=== PATIENT | male | born 1940 | race Caucasian/White ===

== ENCOUNTER 2023-09-19 01:22 | Emergency (ER) | payer MEDICARE, SELFPAY ==
[2023-09-19 01:27] VITALS: BP 90/66
[2023-09-19] MEDS: ADENOCARD 6 MG IV (01:41)
--- NOTE | 2023-09-19 01:48 | ED.GENMED ---
History of Present Illness
General
Chief Complaint: Heart Rate Problem
Source: patient, records and spouse
Exam Limitations: none
Time Seen by Provider: 09/19/23 01:33
Nursing documentation reviewed up to this point in time: agreed with
Travel History
Have you had any contact with someone who has COVID-19?: No
Do you have any symptoms of coronavirus? Fever > 100 degrees, chills, cough, shortness of breath, sore throat, loss of taste or smell, muscle aches, or headache?: No
History of Present Illness
History of Present Illness:
83-year-old male with a past medical history of hypertension, hyperlipidemia, diabetes, paroxysmal SVTWho presents to the emergency department accompanied by his for evaluation of palpitations. Patient reports onset this evening about 30
minutes prior to arrival�says that he felt mildly nauseated and felt his heart racing�these are his typical symptoms with SVT. He says his last episode was about 6 months ago. He says he checked his heart rate with a home monitor and it was 185;
he tried vagal maneuver (below on his thumb) unsuccessfully and came directly to the ER. He denies any chest pain. Denies any shortness of breath. Denies any dizziness or lightheadedness. He says that he has seen cardiology in the past and
discussed ablation but has not yet undergone the procedure�he says he was hesitant because for the past few months.
Past History
Past History
ED Past Medical History: Arrthythmia, HTN, Hypercholesterolemia, NIDDM, Other (SVT) and Other (Patient has a history of kidney stones, enlarge prostate)
ED Past Surgical History: None
Social History
Tobacco: Non-smoker
Alcohol: Occasional
Drug: None
Personal:
Living: with family
Employment: Employed
Family History
Family History: Other (Noncontributory)
Review of Systems
Review of Systems
All Other Systems: ROS reviewed and negative except as documented in HPI and ROS
Constitutional: Denies fever or chills
Respiratory: Denies trouble breathing
Cardiac: Reports palpitations; Denies chest pain, diaphoresis or syncope
ABD/GI: Reports nausea; Denies abdominal pain, vomiting or diarrhea
: Denies flank pain
Musculoskeletal: Denies neck pain or back pain
Neurological: Denies dizzy, headache, weakness or numbness
Phy Exam
Physical Exam
Physical Exam:
General: Awake, alert, oriented x3; no acute distress
Head: Normocephalic, atraumatic
Eyes: Conjunctiva normal, sclera anicteric
Throat: Airway intact, handling secretions
Neck: Trachea midline, supple without meningismus
Lungs: Clear to auscultation bilaterally, no wheezing, rales, rhonchi
Heart: Tachycardia with regular rhythm, no murmurs, gallops, or rubs
Abd: Soft, non distended, nontender
Neuro: Cranial nerves grossly intact, speech fluid
Skin: no rash
Extremities: No edema in extremities, equal pulses in all extremities
Scores
Heart Failure Risk
Heart Failure Risk Score: Not Applicable
Heart Score for Chest Pain Patients
STEMI patient?: Not applicable
Withdrawal Assessment of Alcohol
Withdrawal Assessment Completed?: Not applicable
Course
Orders/Labs/Results
Orders:
Orders
09/19/23 01:29
Electrocardiogram (*1) Urgent
Reason for Study: Tachycardia
EKG- Treatment ONCE
09/19/23 01:38
Adenosine [Adenocard] 12 mg .ROUTE .STK-MED ONE
09/19/23 01:41
Adenosine [Adenocard] 6 mg IV NOW STA
09/19/23 01:59
CMP [Comprehensive Metabolic Panel] Urgent
Complete Blood Count/With Diff Urgent
Magnesium Urgent
Abnormal Lab Results
09/19/23
01:59
RBC 4.48 L 10^6/uL
(4.70-6.10)
Hct 37.8 L %
(39.0-52.0)
Abs Immat Gran (auto) 0.1 H 10^3/uL
(0-0.05)
Immature Gran % 0.8 H %
(0-0.5)
Carbon Dioxide 19 L mmol/L
(22-30)
BUN 27 H mg/dl
(9-20)
Creatinine 1.6 H mg/dL
(0.7-1.3)
Glucose 288 H mg/dl
(70-99)
Total Protein 6.0 L g/dl
(6.3-8.2)
09/19/23 01:59
09/19/23 01:59
Vital Signs
Initial and Last Documented VS:
Initial Vital Signs
Pulse Resp BP
178 26 90/66
09/19/23 01:27 09/19/23 01:27 09/19/23 01:27
Last Documented Vital Signs
Temp Pulse Resp BP Pulse Ox
36.8 C 83 20 111/61 95
09/19/23 01:48 09/19/23 02:30 09/19/23 02:30 09/19/23 02:32 09/19/23 02:30
MDM/Problems Addressed
Differential Diagnosis Includes:
SVT, A-fib/A-flutter
MDM/Problems Addressed:
83-year-old male with history as above notable for paroxysmal SVT presents with palpitations and nausea consistent with prior episodes of SVT. He tried vagal maneuvers at home unsuccessfully. He has no chest pain or shortness of breath. Soft
blood pressure 90/66 heart rate 180 on my assessment. EKG shows narrow complex tachycardia most consistent with an SVT. Given 6 mg of IV adenosine and successfully converted to a sinus rhythm. Symptoms resolved. Blood pressure normal. Will
check basic labs, monitor on telemetry for recurrence. If vitals remain normal and patient remains asymptomatic can likely be discharged home and follow-up with cardiology as an outpatient.
Labs reviewed: CBC unremarkable, CMP shows creatinine 1.6 which is baseline. He is hyperglycemic to 288. Discussed results with patient and will follow-up with his primary doctor. He has remained clinically stable here blood pressure normalized
after adenosine, heart rate in the 80s he is asymptomatic. Medically stable for discharge at this point in time. He will follow-up with Dr. Bernal as an outpatient. Spoke about return precautions and all questions answered.
Chronic conditions affecting care:
Paroxysmal SVT
*Pulse Oximetry
Patient hypoxic: no
*EKG
Interpreted by ED Provider?: Yes
Comparison EKG: changes noted (SVT)
Heart Rate: 175
Rate: tachycardiac
Rhythm: SVT
[place]: left axis deviation
Interval: normal interval
QRS Pattern: normal QRS
Ischemia: non-specific ST changes
*Critical Care Note
Total Time (30-74mins, 75-104mins- exclusive of procedures): 32
comment:
Critical care statement: A total of 32 minutes of critical care time was provided for this patient. This includes management of unstable vital signs, evaluation of the patient at bedside, frequent reassessment, discussion with
consultants/hospitalist, and review of pertinent medical records. This time was separate from time utilized to perform any aforementioned documented procedures
Data Reviewed
Source: patient, records and spouse
ED Attending Note
-
Portions of this chart may have been created with voice recognition software.� Occasional wrong word or��sound alike� substitutions may have occurred due to the inherent limitations of voice recognition software.
Discharge Plan
Departure
Patient Disposition: Home (Routine Discharge)
Date of Disposition: 09/19/23
Time of Disposition: 02:34
Patient with high blood pressure during this ER visit?: No
Discharge Problem:
SVT (supraventricular tachycardia)
Instructions: Supraventricular tachycardia (SVT)
Prescriptions:
No Action
ASPIRIN
81 mg PO DAILY
tamsulosin 0.4 MG capsule
0.4 mg PO DAILY
finasteride 5 MG tablet
5 mg PO DAILY
metformin 500 MG tablet extended release 24hr
1,000 mg PO BID
metoprolol tartrate 50 MG tablet
50 mg PO DAILY Qty: 30 0RF
cholecalciferol (vitamin D3) 2,000 UNIT tablet
2,000 unit PO DAILY
multivitamin [Daily Multiple] 1 EACH tablet
1 ea PO DAILY
rosuvastatin 5 MG tablet
5 mg PO QPM
sitagliptin phosphate [Januvia] 100 MG tablet
100 mg PO DAILY
Referrals:
Negro Bernal MD [Active] - Call in 1-3 days for appt
Activity Restrictions/Additional Instructions:
Thank you for visiting the Emergency Department at [facility].
1. Please schedule a follow up appointment as directed. Call first thing tomorrow morning to make an appointment.
2. If indicated, please take your medications as instructed and indicated on discharge paperwork.
3. If any of your symptoms do not improve, or persist, or become more severe within 6-12 hours, please return to the emergency department for further care.
4. Please return to the emergency department if you develop a headache, neck pain/stiffness, fever greater than 100.4F, chest pain, shortness of breath, persistent nausea, vomiting, slurred speech, difficulty walking, numbness/tingling, weakness,
signs of infection or any other symptoms that are worrisome to you.
Please call [phone] if you have any questions.
Interventions
Interventions:
ED- Cardiac Assessment Last Done: 09/19/23 01:30
ED- Pulmonary Assessment Last Done: 09/19/23 01:30
[2023-09-19 02:00] VITALS: BP 99/64
[2023-09-19 02:05] LABS: % Eosinophils 2.7 % (0-6); % Immature Granulocytes 0.8 % (0-0.5); % Lymphocytes 29.5 % (20.5-51.1); % Monocytes 8.5 % (1.7-9.3); % Neutrophils 57.5 % (42.2-75.2); Absolute Basophils 0.1 10^3/uL (0-0.2); Absolute Eosinophils 0.2 10^3/uL (0-0.7); Absolute Immature Granulocytes 0.1 10^3/uL (0-0.05); Absolute Lymphocytes 1.8 10^3/uL (1.2-3.4); Absolute Monocytes 0.5 10^3/uL (0.1-0.6); Absolute Neutrophils 3.5 10^3/uL (1.4-6.5); Hematocrit 37.8 % (39.0-52.0); Hemoglobin 13.9 g/dL (13.0-18.0); Mean Corp Hgb Conc. 36.8 g/dL (33.0-37.0); Mean Corpuscular Volume 84.4 fL (80.0-94.0); Mean Platelet Volume 8.8 fL (7.4-10.4); Nucleated Red Blood Cells % 0 % (-); Platelet Count 173 10^3/uL (130-400); Red Blood Cell Count 4.48 10^6/uL (4.70-6.10); Red Cell Dist. Width 13.2 % (11.5-14.5)
[2023-09-19 02:24] LABS: ALT (SGPT) 22 U/L (0-50); AST (SGOT) 19 U/L (17-59); Albumin 3.6 g/dl (3.5-5.0); Alkaline Phosphatase 60 U/L (38-126); Blood Urea Nitrogen 27 mg/dl (9-20); Calcium 9.2 mg/dl (8.4-10.2); Carbon Dioxide 19 mmol/L (22-30); Chloride 102 mmol/L (98-107); Glucose 288 mg/dl (70-99); Magnesium 1.7 mg/dl (1.6-2.3); Potassium 3.6 mmol/L (3.5-5.1); Sodium 137 mmol/L (135-145); Total Bilirubin 0.9 mg/dl (0.2-1.3); eGFR 42.75
[2023-09-19 02:30] VITALS: BP 111/61
[2023-09-19 02:32] VITALS: BP 111/61
[2023-09-19 02:46] VITALS: BP 106/68
[2023-09-19 02:51] VITALS: BP 106/68
== END 2023-09-19 02:52 | disposition home or self-care (01) ==
LOC: EMR 01:22
PROVIDERS: EMERGENCY PHYSICIAN Emergency Medicine; FAMILY PHYSICIAN Internal Medicine
DX: I47.10 Supraventricular tachycardia, unspecified (principal); E11.65 Type 2 diabetes mellitus with hyperglycemia
CPT/HCPCS: 99291; 96374; 80053; 83735; 85025; 93005; J0153

== ENCOUNTER 2023-12-18 11:47 | Emergency (ER) | payer MEDICARE, SELFPAY ==
[2023-12-18 11:49] VITALS: BP 136/73
--- NOTE | 2023-12-18 12:35 | ED.GENMED ---
History of Present Illness
General
Chief Complaint: Dizziness
Time Seen by Provider: 12/18/23 12:13
Travel History
Have you had any contact with someone who has COVID-19?: No
Do you have any symptoms of coronavirus? Fever > 100 degrees, chills, cough, shortness of breath, sore throat, loss of taste or smell, muscle aches, or headache?: No
History of Present Illness
History of Present Illness:
83-year-old male with history of hypertension and hyperlipidemia as well as [id number] diabetes presents to the emergency department for evaluation of dizziness and 'clamminess' began upon awakening this morning. The symptoms seem to
have since improved. also notes that over the past several weeks he has seemed 'off' with shuffling gait and occasional confusion. Patient denies any recent fevers or chills. Denies any chest pain or shortness of breath. Denies any vision
changes or urinary tract voiding symptoms.
Past History
Past History
ED Past Medical History: Arrthythmia, HTN, Hypercholesterolemia, NIDDM, Other (SVT) and Other (Patient has a history of kidney stones, enlarge prostate)
ED Past Surgical History: None
Social History
Tobacco: Non-smoker
Alcohol: Occasional
Drug: None
Personal:
Living: with family
Employment: Employed
Family History
Family History: Other (Noncontributory)
Review of Systems
Review of Systems
Allergies reviewed?: Yes
All Other Systems: ROS reviewed and negative except as documented in HPI and ROS
Phy Exam
Physical Exam
Physical Exam:
GEN: Well appearing, NAD, WDWN
HEENT: Oral mucosa moist, no scleral icterus, no nasal congestion
Cardiac: Regular rate and rhythm. 3/6 systolic ejection murmur, consistent with known aortic stenosis
Lung: No respiratory distress, no tachypnea
MSK: No gross deformity or injuries
Skin: Good color, no pallor or jaundice, no rashes
Neuro: AO x3; CN II-XII grossly intact. BUE strength 5/5 in all finley, sensation intact and symmetric. BLE strength 5/5 in all finley, sensation intact and symmetric. Gait is steady without ataxia
Psych: Calm, cooperative
Course
Orders/Labs/Results
Orders:
Orders
12/18/23 12:34
Electrocardiogram (*1) Urgent
Reason for Study: Vertigo / Dizzy
CT Head W/o Iv Contrast Urgent
Comment:
Reason For Exam: dizziness
EKG- Treatment ONCE
12/18/23 12:50
Complete Blood Count/With Diff Urgent
Comprehensive Metabolic Panel Urgent
12/18/23 13:42
Urinalysis Reflex To Culture Urgent
Date Specimen was Collected: 12/18/23
Time Specimen was Collected: 13:27
Abnormal Lab Results
12/18/23 12/18/23
12:50 13:42
RBC 4.64 L 10^6/uL
(4.70-6.10)
MCH 31.5 H pg
(27.0-31.0)
Abs Immat Gran (auto) 0.1 H 10^3/uL
(0-0.05)
Absolute Lymphs (auto) 1.1 L 10^3/uL
(1.2-3.4)
Immature Gran % 0.9 H %
(0-0.5)
Lymphocytes % 19.7 L %
(20.5-51.1)
BUN 24 H mg/dl
(9-20)
Glucose 268 H mg/dl
(70-99)
Urine Ketones Trace A
(Negative)
Urine Glucose 3+ A
(Negative)
12/18/23 12:50
12/18/23 12:50
Vital Signs
Initial and Last Documented VS:
Initial Vital Signs
Temp Pulse Resp BP Pulse Ox
98.6 F 81 18 136/73 95
12/18/23 11:49 12/18/23 11:49 12/18/23 11:49 12/18/23 11:49 12/18/23 11:49
Last Documented Vital Signs
Temp Pulse Resp BP Pulse Ox
98.6 F 68 18 153/82 98
12/18/23 11:49 12/18/23 14:34 12/18/23 14:34 12/18/23 14:31 12/18/23 14:31
MDM/Problems Addressed
MDM/Problems Addressed:
83-year-old male presents with abrupt onset of dizziness and reported shuffling gait. Neurologic exam in the emergency department is unremarkable and I see no evidence for shuffling gait. CT of the head shows suggestion of potential
ventriculomegaly concerning for normal pressure hydrocephalus which certainly could explain the patient's gradual symptoms. He has no abdelrahman confusion or urinary incontinence to suggest severe functional limitation from this potential diagnosis. I
see no evidence for acute stroke based on the exam today. Patient's labs are otherwise unremarkable. Recommend outpatient primary care follow-up and neurology consultation for potential brain MRI and further evaluation of possible NPH
Comment
Comment:
EKG independently interpreted by me shows normal sinus rhythm at a rate of [address] changes concerning for ischemia
*Critical Care Note
Total Time (30-74mins, 75-104mins- exclusive of procedures): Not Applicable
ED Attending Note
-
Portions of this chart may have been created with voice recognition software.� Occasional wrong word or��sound alike� substitutions may have occurred due to the inherent limitations of voice recognition software.
Discharge Plan
Departure
Patient Disposition: Home (Routine Discharge)
Date of Disposition: 12/18/23
Time of Disposition: 14:22
Patient with high blood pressure during this ER visit?: No
Discharge Problem:
Unsteady gait
Instructions: Hydrocephalus (DC)
Prescriptions:
No Action
ASPIRIN
81 mg PO DAILY
tamsulosin 0.4 MG capsule
0.4 mg PO DAILY
finasteride 5 MG tablet
5 mg PO DAILY
metformin 500 MG tablet extended release 24hr
1,000 mg PO BID
metoprolol tartrate 50 MG tablet
50 mg PO DAILY Qty: 30 0RF
cholecalciferol (vitamin D3) 2,000 UNIT tablet
2,000 unit PO DAILY
multivitamin [Daily Multiple] 1 EACH tablet
1 ea PO DAILY
rosuvastatin 5 MG tablet
5 mg PO QPM
sitagliptin phosphate [Januvia] 100 MG tablet
100 mg PO DAILY
Referrals:
Ben Taylor MD [Active] -
Activity Restrictions/Additional Instructions:
There are no clear abnormalities on your workup in the ER today however your CT scan does suggest the possibility of increased fluid in the brain. This would be diagnostic of a condition called normal pressure hydrocephalus. Further
diagnosis/testing will be necessary to confirm this. Please follow-up with your primary care physician to discuss a brain MRI as well as with the neurologist listed on your paperwork
Interventions
Interventions:
*Risk Screen - Suicide Last Done: 12/18/23 11:49
*General Assessment Last Done: 12/18/23 11:49
*Neglect/Abuse Screening Last Done: 12/18/23 11:49
ED- Fall Risk Assessment Last Done: 12/18/23 14:47
*ED COVID-19 Vaccine History Last Done: 12/18/23 12:31
*Nursing Disposition Last Done: 12/18/23 14:47
ED- Neurological Assessment Last Done: 12/18/23 12:52
ED- Cardiac Assessment Last Done: 12/18/23 14:47
Discharge Date and Time
Discharge Date/Time: 12/18/23 14:48
Print Language: HONDURAN
[2023-12-18 12:52] VITALS: BP 174/74
[2023-12-18 13:26] LABS: % Basophils 1.5 % (0-2); % Immature Granulocytes 0.9 % (0-0.5); % Lymphocytes 19.7 % (20.5-51.1); % Monocytes 6.1 % (1.7-9.3); % Neutrophils 69.8 % (42.2-75.2); Absolute Basophils 0.1 10^3/uL (0-0.2); Absolute Eosinophils 0.1 10^3/uL (0-0.7); Absolute Immature Granulocytes 0.1 10^3/uL (0-0.05); Absolute Lymphocytes 1.1 10^3/uL (1.2-3.4); Absolute Monocytes 0.3 10^3/uL (0.1-0.6); Absolute Neutrophils 3.7 10^3/uL (1.4-6.5); Hematocrit 40.3 % (39.0-52.0); Hemoglobin 14.6 g/dL (13.0-18.0); Mean Corp Hgb Conc. 36.2 g/dL (33.0-37.0); Mean Corpuscular Hgb 31.5 pg (27.0-31.0); Mean Corpuscular Volume 86.9 fL (80.0-94.0); Mean Platelet Volume 9.1 fL (7.4-10.4); Nucleated Red Blood Cells % 0 % (-); Platelet Count 195 10^3/uL (130-400); Red Blood Cell Count 4.64 10^6/uL (4.70-6.10); Red Cell Dist. Width 13.2 % (11.5-14.5); White Blood Cell Count 5.4 10^3/uL (4.8-10.8)
[2023-12-18 13:51] LABS: ALT (SGPT) 21 U/L (0-50); AST (SGOT) 22 U/L (17-59); Albumin 4.1 g/dl (3.5-5.0); Alkaline Phosphatase 59 U/L (38-126); Blood Urea Nitrogen 24 mg/dl (9-20); Calcium 9.7 mg/dl (8.4-10.2); Carbon Dioxide 22 mmol/L (22-30); Chloride 105 mmol/L (98-107); Glucose 268 mg/dl (70-99); Potassium 4.8 mmol/L (3.5-5.1); Sodium 136 mmol/L (135-145); Total Protein 6.7 g/dl (6.3-8.2); eGFR 54.85
[2023-12-18 14:03] LABS: Urine Albumin Negative (Neg - Trace); Urine Bilirubin Negative (Negative); Urine Character Clear (Clear); Urine Color Yellow; Urine Glucose 3+ (Negative); Urine Ketone Trace (Negative); Urine Leukocyte Negative (Negative); Urine Nitrite Negative (Negative); Urine Occult Blood Negative (Negative); Urine Urobilinogen Negative (Neg - 1+); Urine pH 6.5 (5.0-9.0)
[2023-12-18 14:31] VITALS: BP 153/82
== END 2023-12-18 14:48 | disposition home or self-care (01) ==
LOC: EMR 11:47
PROVIDERS: Physician Assistant; EMERGENCY PHYSICIAN Emergency Medicine
DX: R26.81 Unsteadiness on feet (principal); R42 Dizziness and giddiness; R41.0 Disorientation, unspecified; I10 Essential (primary) hypertension; E78.00 Pure hypercholesterolemia, unspecified; E11.9 Type 2 diabetes mellitus without complications; I47.10 Supraventricular tachycardia, unspecified; I35.0 Nonrheumatic aortic (valve) stenosis; Z87.442 Personal history of urinary calculi; Z79.82 Long term (current) use of aspirin; Z79.84 Long term (current) use of oral hypoglycemic drugs
CPT/HCPCS: 99284; 70450; 80053; 81003; 85025; 93005

== ENCOUNTER → 2024-01-11 06:44 | Outpatient (REF) | payer MEDICARE, SELFPAY | LOC: PAVMRI 06:44 | PROVIDERS: ATTENDING PHYSICIAN Internal Medicine | DX: G91.9 Hydrocephalus, unspecified (principal) | CPT/HCPCS: 70551 ==

== ENCOUNTER → 2024-02-23 09:32 | Outpatient (REF) | payer MEDICARE, SELFPAY | LOC: RCS 09:32 | PROVIDERS: ATTENDING PHYSICIAN Internal Medicine Cardiovascular Disease; FAMILY PHYSICIAN Internal Medicine | DX: I48.0 Paroxysmal atrial fibrillation (principal); I35.0 Nonrheumatic aortic (valve) stenosis; I25.10 Atherosclerotic heart disease of native coronary artery without angina pectoris | CPT/HCPCS: 93306 ==

== ENCOUNTER 2024-03-17 14:20 | Inpatient (IN) | payer MEDICARE, SELFPAY ==
[2024-03-17] VITALS (15 sets, daily range): BP systolic 112–169; BP diastolic 66–101; PULSE 83; O2SAT 95; BMI 25.7
[2024-03-17 00:51] LABS: Urine Albumin Negative (Neg - Trace); Urine Bilirubin Negative (Negative); Urine Character Clear (Clear); Urine Color Yellow; Urine Glucose 3+ (Negative); Urine Ketone 1+ (Negative); Urine Leukocyte Negative (Negative); Urine Nitrite Negative (Negative); Urine Occult Blood 1+ (Negative); Urine Urobilinogen Negative (Neg - 1+)
[2024-03-17 00:53] LABS: % Eosinophils 2.2 % (0-6); % Immature Granulocytes 0.3 % (0-0.5); % Lymphocytes 23.9 % (20.5-51.1); % Monocytes 8.5 % (1.7-9.3); % Neutrophils 64.1 % (42.2-75.2); Absolute Basophils 0.1 10^3/uL (0-0.2); Absolute Eosinophils 0.1 10^3/uL (0-0.7); Absolute Lymphocytes 1.4 10^3/uL (1.2-3.4); Absolute Monocytes 0.5 10^3/uL (0.1-0.6); Absolute Neutrophils 3.8 10^3/uL (1.4-6.5); Hematocrit 40.4 % (39.0-52.0); Hemoglobin 14.7 g/dL (13.0-18.0); Mean Corp Hgb Conc. 36.4 g/dL (33.0-37.0); Mean Corpuscular Hgb 31.1 pg (27.0-31.0); Mean Corpuscular Volume 85.4 fL (80.0-94.0); Mean Platelet Volume 8.7 fL (7.4-10.4); Nucleated Red Blood Cells % 0 % (-); Platelet Count 192 10^3/uL (130-400); Red Blood Cell Count 4.73 10^6/uL (4.70-6.10); Red Cell Dist. Width 12.9 % (11.5-14.5); White Blood Cell Count 5.9 10^3/uL (4.8-10.8)
[2024-03-17 01:02] LABS: Urine Bacteria Moderate (Negative); Urine White Cell 0-2 /HPF (0-5)
[2024-03-17 01:04] LABS: ALT (SGPT) 18 U/L (0-50); AST (SGOT) 19 U/L (17-59); Albumin 4.1 g/dl (3.5-5.0); Alkaline Phosphatase 73 U/L (38-126); Blood Urea Nitrogen 21 mg/dl (9-20); Calcium 9.4 mg/dl (8.4-10.2); Carbon Dioxide 22 mmol/L (22-30); Chloride 103 mmol/L (98-107); Glucose 400 mg/dl (70-99); Potassium 3.9 mmol/L (3.5-5.1); Sodium 133 mmol/L (135-145); Total Bilirubin 1.3 mg/dl (0.2-1.3); Total Protein 6.7 g/dl (6.3-8.2); eGFR > 60.00
[2024-03-17] MEDS: NSS 1000 IV (01:54)
--- NOTE | 2024-03-17 02:55 | EDRN ---
Dr Ledesma asked that med rec be done because pt has bag of medications in the room. Pt has 2 bottles of unopened eliquis filled 2021, 1 bottle unopened januvia filled 2021. Filled in 2022 are metoprolol ER, tamsulosin, glipizide and eliquis all of
which have a lot of pills in them. Pt has only 2 bottles filled this year - rosuvastatin and metformin which are almost if not completely filled. Unable to do accurate med rec - Dr Ledesma informed.
--- NOTE | 2024-03-17 03:22 | ED.GENMED ---
History of Present Illness
<DO Jenelle Silverio Last Filed: 03/17/24 06:39>
General
Chief Complaint: Fall
Source: patient and family
Time Seen by Provider: 03/17/24 00:29
History of Present Illness
History of Present Illness:
84-year-old male with a history of diabetes, A-fib, hypertension presents with son who reports that over the last 3 to 5 weeks has had frequent falls. He is fallen up to once a day. Patient did fall yesterday and hit his head. Son states that he
has been also getting more confused. He is driving to friends houses in the middle the night. He is showing up at his son's house in the hallway. Patient states he is not sure when he took his medications last. Son states he lives by himself.
He does have a girlfriend who recently broke her hip and is in rehab. Son states he is concerned that he is going to fall and injure himself. The patient states he has not taken his Eliquis probably in 3 days. No fevers. No vomiting. He is
being worked up for normal pressure hydrocephalus and in 3 weeks has an appointment for possible lumbar puncture to see if symptoms improve
Past History
<DO Jenelle Silverio Last Filed: 03/17/24 06:39>
Past History
ED Past Medical History: Arrthythmia, HTN, Hypercholesterolemia, NIDDM, Other (SVT, possible normal pressure hydrocephalus versus dementia) and Other (Patient has a history of kidney stones, enlarge prostate)
ED Past Surgical History: None
Social History
Tobacco: Non-smoker
Alcohol: Occasional
Drug: None
Personal:
Living: with family
Employment: Employed
Family History
Family History: Other (Noncontributory)
Phy Exam
<DO Jenelle Silverio Last Filed: 03/17/24 06:39>
Physical Exam
Physical Exam:
CONSTITUTIONAL Patient alert and oriented to person, place and time. Well-appearing. Vital signs reviewed.
HEAD small abrasion to left frontal area
EYES eyelids normal to inspection, Extraocular muscles intact, Conjunctiva normal, Sclera normal.
NECK normal range of motion, Trachea midline, no jugular venous distention.
RESPIRATORY CHEST No respiratory distress noted, Chest expansion equal, Bilateral breath sounds clear.
CARDIOVASCULAR regular rate and rhythm, Heart sounds normal.
ABDOMEN abdomen nontender, Bowel sounds normal. No distention.
UPPER EXTREMITY range of motion normal, Motor strength normal, no cyanosis, no edema.
LOWER EXTREMITY range of motion normal, Motor strength normal, no cyanosis, no edema.
NEURO Speech normal, No focal motor deficits, Cranial Nerves intact to screening exam. Slightly confused
SKIN skin warm, dry, and normal in color.
Course
<Benjamin Ledesma, DO - Last Filed: 03/17/24 06:39>
Orders/Labs/Results
Orders:
Orders
03/17/24 00:40
CT Head W/o Iv Contrast Urgent
Comment:
Reason For Exam: fall, frequent falls
03/17/24 00:43
Complete Blood Count/With Diff Urgent
Comprehensive Metabolic Panel Urgent
Urinalysis Reflex To Culture Urgent
Date Specimen was Collected: 03/17/24
Time Specimen was Collected: 00:42
Urine Microscopic Reflex Cult Urgent
Urine Culture Urgent
AMRIT Source: U
Specimen Description:
Date Specimen was Collected: 03/17/24
Time Specimen was Collected: 00:42
03/17/24 01:51
0.9% Sodium Chloride 1000 ml [Nss] 1,000 ml IV BOLUS
03/17/24 02:41
METFORMIN HCl [Glucophage] 1,000 mg PO NOW STA
03/17/24 03:05
Case Management Consult ONCE
Case Management Consult: Discharge Planning
03/17/24 Breakfast
1800 calorie (15 carb) Diabetic
At Your Request: Full Participation
03/17/24 06:25
Bedside Glucose- Treatment ONCE
03/17/24 06:42
Insulin Aspart [NOVOLOG vial] 8 units SC NOW STA
03/17/24 08:[address] Non Medication Order As Directed
Physician Order: accu check please
Above order entered?: Yes
03/17/24 08:36
PT Consult [Pt Eval And Treat] Urgent
Activity Level: Out of Bed-Early Mobility
03/17/24 13:59
Admit/Transfer Patient As Directed
Co-Sign Provider:
Level of Care: Inpatient admission
Assign to:: Medical/Surgical
Physician / Group: Nery Wasserman
Diagnosis: Progressive Functional Cognitive Decline
Reason for Hospitalization: Progressive Functional Cognitive Decline
Expected length of stay greater than two midnights?: Yes
ELOS- Estimated Length of Stay in days: 2
I certify the patient meets the requirements for IP care: Yes
PRN Pain Medication Management As Directed
May give lesser potent ordered pain med per pt: Yes
preference::
Protocol:: Medication orders for pain may be administered in a
manner that supports deferring to patient preference
when the pt is:
- Requesting an ordered lesser potent pain medication.
Least to most potent pain medications are defined
as: acetaminophen < NSAID < tramadol < opioids
(morphine, oxycodone, hydromorphone).
- Requesting a lesser dose of the same medication IF
ORDERED.
- Requesting a less intrusive route of administration
if both routes are prescribed by the provider (PO <
IV).
03/17/24 14:04
Code Status As Directed
Resuscitation Status: Do not resuscitate
Reached after discussion with pt or family/Healthcare POA: Yes
03/17/24 14:05
DNR Bracelet Application ONCE
Abnormal Lab Results
03/17/24 03/17/24 03/17/24
00:43 06:35 08:25
MCH 31.1 H pg
(27.0-31.0)
Sodium 133 L mmol/L
(135-145)
BUN 21 H mg/dl
(9-20)
Glucose 400 H mg/dl
(70-99)
Urine Ketones 1+ A
(Negative)
Ur Occult Blood Reflex 1+ A
(Negative)
Urine RBC 3-6 A /HPF
(0-2)
Urine Bacteria (Reflex) Moderate A
(Negative)
Urine Glucose 3+ A
(Negative)
POC Glucose 324 H mg/dl 207 H mg/dl
(70-99) (70-99)
03/17/24 00:43
03/17/24 00:43
Vital Signs
Initial and Last Documented VS:
Initial Vital Signs
Temp Pulse Resp BP Pulse Ox
99.1 F 95 16 149/83 98
03/17/24 00:03 03/17/24 00:03 03/17/24 00:03 03/17/24 00:03 03/17/24 00:03
Last Documented Vital Signs
Temp Pulse Resp BP Pulse Ox
98.2 F 70 16 137/74 95
03/17/24 03:40 03/17/24 04:00 03/17/24 02:00 03/17/24 12:24 03/17/24 12:24
<Zhanna Lewis MD - Last Filed: 03/17/24 14:18>
Orders/Labs/Results
Orders:
Orders
03/17/24 00:40
CT Head W/o Iv Contrast Urgent
Comment:
Reason For Exam: fall, frequent falls
03/17/24 00:43
Complete Blood Count/With Diff Urgent
Comprehensive Metabolic Panel Urgent
Urinalysis Reflex To Culture Urgent
Date Specimen was Collected: 03/17/24
Time Specimen was Collected: 00:42
Urine Microscopic Reflex Cult Urgent
Urine Culture Urgent
AMRIT Source: U
Specimen Description:
Date Specimen was Collected: 03/17/24
Time Specimen was Collected: 00:42
03/17/24 01:51
0.9% Sodium Chloride 1000 ml [Nss] 1,000 ml IV BOLUS
03/17/24 02:41
METFORMIN HCl [Glucophage] 1,000 mg PO NOW STA
03/17/24 03:05
Case Management Consult ONCE
Case Management Consult: Discharge Planning
03/17/24 Breakfast
1800 calorie (15 carb) Diabetic
At Your Request: Full Participation
03/17/24 06:25
Bedside Glucose- Treatment ONCE
03/17/24 06:42
Insulin Aspart [NOVOLOG vial] 8 units SC NOW STA
03/17/24 08:[address] Non Medication Order As Directed
Physician Order: accu check please
Above order entered?: Yes
03/17/24 08:36
PT Consult [Pt Eval And Treat] Urgent
Activity Level: Out of Bed-Early Mobility
03/17/24 13:59
Admit/Transfer Patient As Directed
Co-Sign Provider:
Level of Care: Inpatient admission
Assign to:: Medical/Surgical
Physician / Group: Nery Wasserman
Diagnosis: Progressive Functional Cognitive Decline
Reason for Hospitalization: Progressive Functional Cognitive Decline
Expected length of stay greater than two midnights?: Yes
ELOS- Estimated Length of Stay in days: 2
I certify the patient meets the requirements for IP care: Yes
PRN Pain Medication Management As Directed
May give lesser potent ordered pain med per pt: Yes
preference::
Protocol:: Medication orders for pain may be administered in a
manner that supports deferring to patient preference
when the pt is:
- Requesting an ordered lesser potent pain medication.
Least to most potent pain medications are defined
as: acetaminophen < NSAID < tramadol < opioids
(morphine, oxycodone, hydromorphone).
- Requesting a lesser dose of the same medication IF
ORDERED.
- Requesting a less intrusive route of administration
if both routes are prescribed by the provider (PO <
IV).
03/17/24 14:04
Code Status As Directed
Resuscitation Status: Do not resuscitate
Reached after discussion with pt or family/Healthcare POA: Yes
03/17/24 14:05
DNR Bracelet Application ONCE
Abnormal Lab Results
03/17/24 03/17/24 03/17/24
00:43 06:35 08:25
MCH 31.1 H pg
(27.0-31.0)
Sodium 133 L mmol/L
(135-145)
BUN 21 H mg/dl
(9-20)
Glucose 400 H mg/dl
(70-99)
Urine Ketones 1+ A
(Negative)
Ur Occult Blood Reflex 1+ A
(Negative)
Urine RBC 3-6 A /HPF
(0-2)
Urine Bacteria (Reflex) Moderate A
(Negative)
Urine Glucose 3+ A
(Negative)
POC Glucose 324 H mg/dl 207 H mg/dl
(70-99) (70-99)
03/17/24 00:43
03/17/24 00:43
Vital Signs
Initial and Last Documented VS:
Initial Vital Signs
Temp Pulse Resp BP Pulse Ox
99.1 F 95 16 149/83 98
03/17/24 00:03 03/17/24 00:03 03/17/24 00:03 03/17/24 00:03 03/17/24 00:03
Last Documented Vital Signs
Temp Pulse Resp BP Pulse Ox
98.2 F 70 16 137/74 95
03/17/24 03:40 03/17/24 04:00 03/17/24 02:00 03/17/24 12:24 03/17/24 12:24
<Benjamin Ledesma DO - Last Filed: 03/17/24 06:39>
MDM/Problems Addressed
MDM/Problems Addressed:
Change in mental status, hyperglycemia, uncontrolled hypertension, change in mental status, possible NPH
<DO Jenelle Silverio Last Filed: 03/17/24 06:39>
*Radiology
Radiology exam reviewed: preliminary read by ED provider (No obvious hemorrhage, unchanged from previous CT)
*Pulse Oximetry
Patient hypoxic: no
*Critical Care Note
Total Time (30-74mins, 75-104mins- exclusive of procedures): Not Applicable
Data Reviewed
Review of Other/Old Records Reveals: Radiology Studies (Prior MRI of the brain reading reviewed)
Source: patient and family
Prescriptions/Medications Considered But Not Given:
Consider giving his oral meds but unable to verify which medications he supposed to be on
<DO Jenelle Silverio Last Filed: 03/17/24 06:39>
Patient Management
Escalation/DeEscalation of care consider admission/obs:
Patient with subacute presentation over weeks. Is hyperglycemic today but likely because he has not taken his medications. Son concerned about him living by himself. Await case management consultation in the a.m. Patient stable. Given IV fluids
and will recheck blood sugar. Given his metformin.
<Zhanna Lewis MD - Last Filed: 03/17/24 14:18>
Update Note
Update Note:
8:35 AM case management has notified us that they are unable to place patient into a rehab facility and recommends patient be admitted and have a PT consult. In addition, I feel that patient's diabetes needs to be better medically managed and it
would be helpful to have neurological consult. Patient will be admitted to the hospitalist.
ED Attending Note
<Benjamin Ledesma DO - Last Filed: 03/17/24 06:39>
-
Portions of this chart may have been created with voice recognition software.� Occasional wrong word or��sound alike� substitutions may have occurred due to the inherent limitations of voice recognition software.
Discharge Plan
Departure
Patient Disposition: Admit
Date of Disposition: 03/17/24
Time of Disposition: 08:36
Admit to: Med/Surg
Presentation/result/management discussed w/ accepting MD/DO: Hospitalist
Patient with high blood pressure during this ER visit?: No
Condition: Fair
Covid-19: Not Applicable
Discharge Problem:
acute on chronic encephalopathy, Adult failure to thrive, Poorly controlled diabetes mellitus
Prescriptions:
No Action
losartan 50 mg Tablet
50 mg PO DAILY
furosemide 40 mg Tablet
40 mg PO DAILY
metoprolol succinate 100 mg Tablet Extended Release 24 Hr
100 mg PO DAILY
glipizide 5 mg Tablet Extended Release 24hr
5 mg PO DAILY
glipizide 5 mg Tablet Extended Release 24hr
10 mg PO QPM
allopurinol 100 mg Tablet
100 mg PO BID
glimepiride 2 mg Tablet
4 mg PO DAILY
tamsulosin 0.4 mg Capsule
0.4 mg PO DAILY
potassium citrate 10 mEq (1,080 mg) Tablet Extended Release
10 meq PO HS
metformin 500 mg Tablet Extended Release 24 Hr
1,000 mg PO BID
finasteride 5 mg Tablet
5 mg PO DAILY
rosuvastatin 10 mg Tablet
10 mg PO DAILY
Januvia 100 mg Tablet
100 mg PO DAILY
Eliquis 5 mg Tablet
5 mg PO BID
dapagliflozin propanediol [Farxiga] 10 mg Tablet
10 mg PO DAILY
Referrals:
Kirby Garcia MD [Family Provider] -
Interventions
Interventions:
*Risk Screen - Suicide Last Done: 03/17/24 00:03
*General Assessment Last Done: 03/17/24 00:53
*Neglect/Abuse Screening Last Done: 03/17/24 00:03
ED- Fall Risk Assessment Last Done: 03/17/24 12:47
*ED COVID-19 Vaccine History Last Done: 03/17/24 00:03
ED-Musculoskeletal Assessment Last Done: 03/17/24 00:48
ED- Neurological Assessment Last Done: 03/17/24 03:55
ED-Skin Assessment Last Done: 03/17/24 03:55
Discharge Date and Time
Print Language: BARBADIAN
[2024-03-17] MEDS: GLUCOPHAGE 1000 MG PO (03:42)
--- NOTE | 2024-03-17 03:58 | EDRN ---
Pt says he is in 'a bad hospital' that it is '2024' and he is here because he has not been taking his medications. Pt says he stopped taking his medications about 1 week ago because he does not think he needs them. When informed his blood sugar
was 400 'that's awful high, I guess I need to take my medicine.' Pt denies pain and only complaint is that he has to be here. Pt informed he will be staying until morning when case management can see him. Suggested pt try to get some sleep after
repositioning and warm blankets and he said he doubts he will be able to do so. Pt offers no other needs.
--- NOTE | 2024-03-17 04:02 | EDRN ---
Additionally, pt had 250ml NS left from 1L bolus ordered when this RN entered pt room - raised IVF to facilitate completion of infusion and d/c'd.
[2024-03-17 06:38] LABS: Glucose - Point of Care 324 mg/dl (70-99)
[2024-03-17] MEDS: NOVOLOG vial 8 UNITS SC (06:52)
[2024-03-17 08:27] LABS: Glucose - Point of Care 207 mg/dl (70-99)
--- NOTE | 2024-03-17 09:03 | CM ---
CM reviewed medical records. Pending PT evaluation for further discharge planning efforts.
--- NOTE | 2024-03-17 10:42 | HPS.HSE ---
Addendum entered and electronically signed by Nery Wasserman MD 03/17/24 17:49:
Case discussed with Neurology, neurosx consult requested d/t concern C345 cord compression contributing to gait dysfunction
MRI Cervical Spine ordered
Original Note:
Family Physician
-
Family Physician: Kirby Salas
Chief Complaint
-
Falls
History of Present Illness
84 male diabetes hypertension hyperlipidemia SVT Eliquis history of progressive decline for the past few months (possibly more per son) presents with progressive confusion falls urinary incontinence for the past 3 weeks or so. AAO x 2 disoriented
to time poor historian. Most of history from report and discussion with patient's son POA name Ellis. Per son patient lives with his girlfriend who has Parkinson suspects that may have been covering for each others cognitive
deficits/impairments. Noted memory issues for months outpatient workup concerning for possible NPH as noted on MRI in December plan for outpatient lumbar puncture in March. Cognitive issues became more apparent when patient's girlfriend broke her hip
and was sent to rehab. Vital signs stable. Hyperglycemia otherwise labs unremarkable. CT head noted no acute abnormalities possible NPH was noted again.
Medical History
Past Medical History
Past Medical History: Reports Other (as above)
Past Surgical History: Reports Other (as above)
Social History
Unable to obtain full social history at this time due to: Dementia
Family History
Family History: Not pertinent (reviewed)
Allergies / Home Medications
Allergies reflects when Allergies were last updated in [employer].
Home Medications with original date entered in [employer]
Allergy/Medication List:
Allergies
Allergy/AdvReac Type Severity Reaction Status Date / Time
No Known Allergies Allergy Verified 03/17/24 06:46
Home Medications
allopurinol 100 mg tablet 100 mg PO BID 03/17/24
apixaban 5 mg tablet (Eliquis) 5 mg PO BID 03/17/24
dapagliflozin propanediol 10 mg tablet (Farxiga) 10 mg PO DAILY 03/17/24
finasteride 5 mg tablet 5 mg PO DAILY 03/17/24
furosemide 40 mg tablet 40 mg PO DAILY 03/17/24
glimepiride 2 mg tablet 4 mg PO DAILY 03/17/24
glipizide 5 mg tablet, extended release 24 hr 5 mg PO DAILY 03/17/24
glipizide 5 mg tablet, extended release 24 hr 10 mg PO QPM 03/17/24
losartan 50 mg tablet 50 mg PO DAILY 03/17/24
metformin 500 mg tablet,extended release 24 hr 1,000 mg PO BID 03/17/24
metoprolol succinate 100 mg tablet,extended release 24 hr 100 mg PO DAILY 03/17/24
potassium citrate 10 mEq (1,080 mg) tablet,extended release 10 meq PO HS 03/17/24
rosuvastatin 10 mg tablet 10 mg PO DAILY 03/17/24
sitagliptin phosphate 100 mg tablet (Januvia) 100 mg PO DAILY 03/17/24
tamsulosin 0.4 mg capsule 0.4 mg PO DAILY 03/17/24
Review of Systems
-
Unable to obtain full review of systems at this time due to: Dementia
Physical Exam
Vital Signs
Vital Signs
Temp Pulse Resp BP Pulse Ox
98.2 F 70 16 112/66 94
03/17/24 03:40 03/17/24 04:00 03/17/24 02:00 03/17/24 08:00 03/17/24 08:00
Physical Exam
General: Other (as below)
Laboratory Results
-
03/17/24 00:43
03/17/24 00:43
Laboratory Results
Total Bilirubin 1.3 mg/dl (0.2-1.3) 03/17/24 00:43
AST 19 U/L (17-59) 03/17/24 00:43
ALT 18 U/L (0-50) 03/17/24 00:43
Alkaline Phosphatase 73 U/L (38-126) 03/17/24 00:43
Impression/Plan
-
Physical Exam
General: No pallor, cyanosis, or jaundice.
HEENT: Throat clear. PERRLA Normocephalic atraumatic
NECK: Supple. No JVD Carotid Bruits
RESPIRATORY: Lungs clear to auscultation. No crackles wheezes stridor
CVS: S1, S2 normal. RRR. No murmur, rub or gallop.
ABDOMEN: Soft, non-tender. No distension. BS+/normal.
EXTREMITIES: No peripheral cyanosis or edema.
skin: scattered lesions/abrasions noted on scalp and legs healing
MANUFACTURER'S REPRESENTATIVE: AOx2 disoriented to time slow mentation at times exhibiting memory issues
IMPRESSION:
84 male diabetes hypertension hyperlipidemia SVT Eliquis history of progressive decline for the past few months (possibly more per son) presents with progressive confusion falls urinary incontinence for the past 3 weeks or so. AAO x 2 disoriented
to time poor historian. Most of history from report and discussion with patient's son POA name Ellis. Per son patient lives with his girlfriend who has Parkinson suspects that may have been covering for each others cognitive
deficits/impairments. Noted memory issues for months outpatient workup concerning for possible NPH as noted on MRI in December plan for outpatient lumbar puncture in March. Cognitive issues became more apparent when patient's girlfriend broke her hip
and was sent to rehab. Son also reports patient is different person at /night. Vital signs stable. Hyperglycemia otherwise labs unremarkable. CT head noted no acute abnormalities possible NPH was noted again.
PLAN:
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
#Frequent falls
MedSurg admit
ST PT OT eval
Fall precautions
Neuro Eval
To be discussed with IR tomorrow possible diagnostic Lumbar puncture NPH inpt as opposed to outpt
Check B12 TSH reflex T4
Check QTc EKG
#DM
check A1c
cont home Metformin Glipizide Januvia
Medium dose sliding scale
monitor and titrate insulin regimen as necessary
#HTN
cont home metoprolol Losartan with holding parameters
#HLD
cont statin
#Hx SVT
cont home metoprolol w/ holding parameters
hold Eliquis given frequent falls risk currently outweighs benefit
#BPH
cont home flomax finasteride
dvt ppx Lovenox
DNR/DNI as per son POA also named Ellis (patient at this time doesn't appear to have capacity to make his own medical decisions)
discussed with patient and son both named Ellis
I spent a total of 76 minutes with the patient or on the floor. More than 50% of this time involved counseling and coordination of care.
--- NOTE | 2024-03-17 11:51 | PHANOTE ---
[facility] [place](03/17/24)-patient unable to give accurate medication list, compiled a list through [facility], [facility] records from 02/29/24, and medication bottles brought in by son. Confirmed that despite having Xarelto, he has not taken any yet, and is
still on Eliquis.
--- NOTE | 2024-03-17 12:43 | CM ---
CM reviewed medical records. CM met with patient and son in room. Patient's only son has healthcare POA. Patient currently lives with his long time girlfriend of 40 years. Patient's girlfriend is currently in [facility] after a hip fracture at [facility].
Son expressed that patient's living conditions are hoarded. Patient's son showed this CM a video on his phone demonstrating the conditions of the home. CM noted kitchen and patient's living spaces are cluttered. Son reports multiples falls over the
last few weeks. Son further stated that patient's behavior has become increasingly erratic and he's been very forgetful. Patient's son also reports sundowning by patient in the evening.
Patient's son is agreeable to placement. He did not express a preference but since patient's girlfriend is at [facility] he would like a referral sent. CM advised that due to patient's insurance choices may be limited.
[facility]
Son further expressed that he has spoke with [facility]. CM will send a referral for services via email to [facility].
[2024-03-17 16:26] LABS: TSH Reflex To Free T4 1.18 uIU/ml (0.47-4.68)
[2024-03-17 16:45] LABS: Vitamin B12 237 pg/ml (239-931)
[2024-03-17] MEDS: LOVENOX 40 MG SC (17:38)
[2024-03-17] MEDS: GLUCOTROL XL (EXTENDED RELEASE) 10 MG PO (17:38)
[2024-03-17] MEDS: GLUCOPHAGE XR EXTENDED RELEASE 1000 MG PO (17:38)
[2024-03-17 17:43] LABS: Glucose - Point of Care 244 mg/dl (70-99)
--- NOTE | 2024-03-17 18:28 | PTCARENOTE ---
Received patient from ED AAOx1-2. Pt confused. Oriented patient to room. Bed Alarm on. Pt's son an patient brought a bag of medications to hospital. Pharmacy Form completed for all medications. Spoke to Pharmacist , they will meat pickler bag of
medications from medication room on . There are no controlled medications. Pt made comfortable. Cont to assess patient status.
[2024-03-17] MEDS: NOVOLOG FLEXPEN-LOW RESISTANCE 2 UNITS SC (18:34)
[2024-03-17] MEDS: FLOMAX 0.4 MG PO (21:36)
[2024-03-17 22:06] LABS: Glucose - Point of Care 253 mg/dl (70-99)
[2024-03-18] MEDS: ZYPREXA 5 MG PO ×2 (02:39→22:28)
[2024-03-18 06:00] VITALS: BMI 26.8
[2024-03-18 07:05] LABS: Hematocrit 39.4 % (39.0-52.0); Hemoglobin 14.4 g/dL (13.0-18.0); Mean Corp Hgb Conc. 36.5 g/dL (33.0-37.0); Mean Corpuscular Hgb 30.4 pg (27.0-31.0); Mean Corpuscular Volume 83.3 fL (80.0-94.0); Mean Platelet Volume 9.2 fL (7.4-10.4); Platelet Count 197 10^3/uL (130-400); Red Blood Cell Count 4.73 10^6/uL (4.70-6.10); Red Cell Dist. Width 12.8 % (11.5-14.5); White Blood Cell Count 5.7 10^3/uL (4.8-10.8)
[2024-03-18 07:23] VITALS: BP 153/83
[2024-03-18 07:37] LABS: Blood Urea Nitrogen 15 mg/dl (9-20); Calcium 9.3 mg/dl (8.4-10.2); Chloride 106 mmol/L (98-107); Estimated Creatinine Clearance 58 ml/min; Glucose 251 mg/dl (70-99); Magnesium 1.6 mg/dl (1.6-2.3); Potassium 3.9 mmol/L (3.5-5.1); Sodium 135 mmol/L (135-145); eGFR > 60.00
[2024-03-18 07:42] LABS: Glucose - Point of Care 259 mg/dl (70-99)
[2024-03-18 07:49] LABS: Carbon Dioxide 17 mmol/L (22-30)
--- NOTE | 2024-03-18 08:10 | CON.NEURO4 ---
Addendum entered and electronically signed by Ben Taylor MD 03/18/24 12:27:
I saw and evaluated patient reviewed note by Ria Renee agree to find the following comments:
84-year-old male presented to hospital due to confusion frequent falls and ambulatory difficulty. Patient reports he started to have gait issues around 1 year ago but this spontaneously improved but the gait issues again recurred around 2 to 3
months ago when he started using walker noting that his balance and sensation of spatial awareness seem to be abnormal. Family had related that he seemed to have some confusion and memory difficulties that worsened after his longtime partner had
developed medical issues. He has been being worked up for NPH based on outpatient brain imaging.. Patient reports some urinary incontinence and urgency for around 1 to 2 months.
Neurologic examination
Mild cognitive impairment with some short-term memory difficulties 2/5 after 5 minutes, knows current events of presidential assassination attempt, no aphasia, obeys multistep commands
Cranials 2 through 12 normal
Power 5/5 throughout normal muscle bulk and tone no significant atrophy
Mildly decreased vibratory sense in the feet bilaterally. Minimally
Reflexes are 2+ symmetric Achilles patella biceps triceps brachioradialis negative Carlos's Babinski is negative no clonus no pathologic hyperreflexia
Brain MRI reviewed which does show ventriculomegaly
Assessment: High suspicion of symptomatic normal pressure hydrocephalus, lack of hyperreflexia and characteristic history I think makes a cervical myelopathy less likely as cause of gait issues. No significant peripheral neuropathy.
Recommendations
-Although normally done on an outpatient patient basis I feel would be in the patient's best interest to undergo a large-volume lumbar puncture with PT evaluation of gait before and after the procedure
-Check MRI cervical spine to further assess severity of any cervical spine stenosis that can contribute to gait
Original Note:
Consultation - Neurology 4
-
CONSULTING PHYSICIAN: Fredy Taylor MD
REFERRING PHYSICIAN: Hospitalists/Dr. Wasserman
DICTATED BY: JP Young
DATE/TIME OF REQUEST: 03/17/24
DATE/TIME OF CONSULTATION: 03/18/24
Reason for Consultation: Symptomatic NPH
History of Present Illness:
This is a 84-year-old right-handed male who has presented to the hospital on 03/17/24 with report of frequent falls and hitting his head the day prior to arrival (03/16/24). Patient is a somewhat limited historian and and some of this information is
obtained from medical records. Patient reports that about 6 months ago he started to feel 'shaky' on on his feet which was new but he was still ambulating without falling. In the past 2-3 months he reports feeling more unsteady on his feet and
needing to use a walker with ambulation. He reports falling about a dozen times in the past two months but medical records sound like he is falling daily. He lives with his girlfriend but she recently fell and broke her hip and has been at [facility]
for rehab. Since she has been gone, patient's son notes a noticeable change in memory issues/confusion such as driving to a friend's house in the middle of the night. Patient reports that he stopped driving a few months ago due to a few 'near
accidents.' Patient does endorse recent short term memory issues. He also reports urinary incontinence/urgency x1-2 months. He denies any hallucinations. He denies any headaches, neck pain, dizziness, vision changes/diplopia, speech/swallow
difficulty, numbness, weakness, chest pain, palpitations, and shortness of breath. Per his son he has not been taking his medications regularly. Patient reports that he has been undergoing a workup for 'water on his brain' by his PCP and a
neurosurgeon that he cannot recall the name of. He is scheduled to have a large volume LP in March 2024. He also reports being evaluated for cervical spine changes in the past and was told by a Neurosurgeon that it was not worrisome.
Past Medical History: Paroxysmal Afib (Eliquis), SVT, HTN, HLD, aortic valve regurgitation, NIDDM, BPH, kidney stones, gout
Surgical History: Cardiac cath, lithotripsy, skin cancer removal.
Family History: Reviewed and noncontributory.
Social History: Former smoker. Former alcohol. Denies illicit drug use.
Allergies: No known allergies.
Home Medications: See below.
Review of Symptoms:
Patient denies any fever, headache, chest pain, shortness of breath, GI or symptoms.
�Per the HPI.�All systems are reviewed negative except above.
Physical Exam:
The patient is afebrile, abdomen is nondistended, breathing is unlabored, skin is warm and dry, no edema.
Neurologic Examination:
The patient is awake, alert and oriented to person and month, not year or place. He is able to follow commands and answer questions appropriately. There is no aphasia or dysarthria. On cranial nerve assessment, pupils are 3 mm bilateral, round and
reactive to light and accommodation. Bilateral eyelids are mildly droopy. Visual finley are full. Extraocular movements are intact. Facial sensations are intact and bilaterally symmetrical, there is no facial asymmetry. Hearing is intact bilaterally
to normal conversation volume. Tongue palate and uvula are midline. Sternocleidomastoid strengths are full bilaterally. Motor strengths are 5/5 bilateral upper and lower extremities on medical research [place] scale. No hand atrophy noted. There is
no drift. There is a distal bilateral upper extremity low amplitude tremor on exertion. Deep tendon reflexes are 3+ bilateral upper extremities and 2+ bilateral lower extremities and Babinski is absent bilaterally. Sensations of temperature and
vibration are mildly reduced in distal bilateral lower extremities. There was no extinction noted on double simultaneous stimulation. Coordination is intact by finger to nose bilaterally. Gait is mildly unsteady.
Lab Results: See below.
Neuro Imaging:
1. MRI Brain 01/11/24: No evidence of acute intracranial abnormality. Regular dilation which appears slightly greater than the degree of atrophy. Findings suggest the possibility of normal pressure hydrocephalus, and please correlate clinically. On
sagittal sequence, there appears to be compression of the spinal cord from disc/osteophyte complex, especially at C3-4 and C4-5. If there are symptoms referrable to the cervical spine, a full cervical spine MRI could be performed.
2. CT Head 03/17/24: No acute intracranial abnormality noted. Stable exam with changes possibly related to normal pressure hydrocephalus.
Differentials for the patient's presentation include:
1. Normal pressure hydrocephalus possibly contributing to patient's cognitive changes, unsteady gait, and urinary incontinence.
2. Mild cognitive impairment at baseline possible.
3. Peripheral neuropathy possibly contributing to gait dysfunction.
4. Exam findings less supportive of cervical myelopathy.
5. Vitamin B12 deficiency.
6. Poorly controlled DM.
Patient has the following risk factors for their symptoms: Enlarged ventricles on head imaging
Recommendations:
-Large volume LP for NPH workup as an inpatient, will need PT gait evaluation before and after the procedure.
-Cervical spine MRI pending for further evaluation.
-Continue home Eliquis when able to per IR recommendation.
-Goal normotension.
-Goal normoglycemia, hbA1c is 10.7.
-Checking blood work for metabolic abnormalities.
-Vitamin B12 level is low at 237. Initiate cyanocobalamin 1000mcg PO daily.
-PT/OT/ST evaluations.
-Patient should undergo Neuropsychological testing as an outpatient.
-DVT prophylaxis.
Discussed patient care with: Dr. Taylor, the patient
Vital Signs and Labs
-
Vital Signs and Labs:
Vital Signs
Temp Pulse Resp BP Pulse Ox
98.2 F 91 18 153/83 96
03/18/24 07:23 03/18/24 07:23 03/18/24 07:23 03/18/24 07:23 03/18/24 07:23
Lab Results
03/18/24 06:36
03/18/24 06:36
Sodium 135 mmol/L (135-145) 03/18/24 06:36
Potassium 3.9 mmol/L (3.5-5.1) 03/18/24 06:36
BUN 15 mg/dl (9-20) 03/18/24 06:36
Glucose 251 mg/dl (70-99) H 03/18/24 06:36
Calcium 9.3 mg/dl (8.4-10.2) 03/18/24 06:36
Vitamin B12 237 pg/ml (878-211) L 03/17/24 00:43
Medications
-
Active Medications
Generic Name Dose Route Start Last Admin
Trade Name Freq PRN Reason Stop Dose Admin
Acetaminophen 650 mg 03/17/24 15:55
Acetaminophen 325 Mg Tablet PO 04/14/24 15:54
Q4HPRN PRN
mild pain/SHAH/temp> 100.4F
Bisacodyl 10 mg 03/17/24 15:55
Bisacodyl 10 Mg Rectal Suppository RECTAL 04/14/24 15:54
[id number] PRN
constipation
Dextrose 12.5 grams 03/18/24 08:31
Dextrose 50% (0.5 Grams/Ml) 50 Ml Syringe IV 04/15/24 08:30
[id number] PRN
hypoglycemia
Protocol
Enoxaparin Sodium 40 mg 03/17/24 18:00 03/17/24 17:38
Enoxaparin Sodium 40 Mg/0.4 Ml Syringe SC 04/14/24 17:59 40 mg
QPM NAKUL Administration
Finasteride 5 mg 03/18/24 08:00
Finasteride 5 Mg Tablet PO 04/15/24 07:59
DAILY NAKUL
Glipizide 5 mg 03/18/24 08:00
Glipizide 5 Mg Extended Release (24 H) Tablet PO 04/15/24 07:59
DAILY NAKUL
Glipizide 10 mg 03/17/24 18:00 03/17/24 17:38
Glipizide 5 Mg Extended Release (24 H) Tablet PO 04/14/24 17:59 10 mg
QPM NAKUL Administration
Glucagon 1 mg 03/18/24 08:31
Glucagon 1 Mg Vial IM 04/15/24 08:30
PRN PRN
hypoglycemia
Protocol
Insulin Aspart 0 units 03/18/24 11:30
Insulin Aspart Moderate Resistance 300 Units/3 Ml Pen.Injctr SC 04/15/24 11:29
AC NAKUL
Protocol
Losartan Potassium 50 mg 03/18/24 08:00
Losartan 50 Mg Tablet PO 04/15/24 07:59
DAILY NAKUL
Metformin HCl 1,000 mg 03/17/24 17:00 03/17/24 17:38
Metformin 500 Mg Extended Release Tablet PO 04/14/24 16:59 1,000 mg
BID AT 0800,1700 NAKUL Administration
Metoprolol Succinate 100 mg 03/18/24 08:00
Metoprolol 100 Mg Extended Release Tablet PO 04/15/24 07:59
DAILY NAKUL
Polyethylene Glycol 17 grams 03/17/24 15:55
Polyethylene Glycol Powder 17 Grams Packet PO 04/14/24 15:54
DAILYPRN PRN
constipation
Rosuvastatin Calcium 10 mg 03/18/24 08:00
Rosuvastatin (Crestor) 10 Mg Tablet PO 04/15/24 07:59
DAILY NAKUL
Senna/Docusate Sodium 1 tablet 03/17/24 15:55
Docusate W/Senna (Rose-Colace) Tablet PO 04/14/24 15:54
BIDPRN PRN
constipation
Sitagliptin Phosphate 100 mg 03/18/24 08:00
Sitagliptin (Januvia) 100 Mg Tablet PO 04/15/24 07:59
DAILY NAKUL
Sodium Chloride 0 flush 03/17/24 17:00
Sodium Chloride 0.9% (Flush) Syringe IV 04/14/24 16:59
PER PROTOCOL NAKUL
Tamsulosin HCl 0.4 mg 03/17/24 22:00 03/17/24 21:36
Tamsulosin 0.4 Mg Capsule PO 04/14/24 21:59 0.4 mg
HS NAKUL Administration
Home Medications
�Medication �Instructions �Recorded
allopurinol 100 mg tablet 100 mg PO BID Gout 03/17/24
apixaban 5 mg tablet (Eliquis) 5 mg PO BID Blood Clot 03/17/24
Prevention/Tx
dapagliflozin propanediol 10 mg 10 mg PO DAILY Diabetes 03/17/24
tablet (Farxiga)
finasteride 5 mg tablet 5 mg PO DAILY Urinary Issue 03/17/24
furosemide 40 mg tablet 40 mg PO DAILY Fluid 03/17/24
Retention/Swelling
glimepiride 2 mg tablet 4 mg PO DAILY Diabetes 03/17/24
glipizide 5 mg tablet, extended 5 mg PO DAILY Diabetes 03/17/24
release 24 hr
glipizide 5 mg tablet, extended 10 mg PO QPM Diabetes 03/17/24
release 24 hr
losartan 50 mg tablet 50 mg PO DAILY Blood Pressure 03/17/24
metformin 500 mg tablet,extended 1,000 mg PO BID Diabetes 03/17/24
release 24 hr
metoprolol succinate 100 mg 100 mg PO DAILY Blood Pressure 03/17/24
tablet,extended release 24 hr
potassium citrate 10 mEq (1,080 10 meq PO HS Supplement 03/17/24
mg) tablet,extended release
rosuvastatin 10 mg tablet 10 mg PO DAILY High Cholesterol 03/17/24
sitagliptin phosphate 100 mg 100 mg PO DAILY Diabetes 03/17/24
tablet (Januvia)
tamsulosin 0.4 mg capsule 0.4 mg PO DAILY Urinary Issue 03/17/24
--- NOTE | 2024-03-18 08:30 | W.PN.HOSP.TC ---
Today's Communication/Plan
-
Neurology and neurosurgery eval. LP. PT. Insulin management.
Assessment / Plan
Assessment / Plan
Physical exam:
General: Acute on chronically ill
HEENT: Normocephalic, Atraumatic and Moist Mucous Membranes
Respiratory: Clear to Auscultation; Negative Wheezes, Rales or Rhonchi
Cardiac: Regular Rhythm and S1/S2
GI: Soft, Nontender and Nondistended
Musculoskeletal: No Clubbing, No Cyanosis and No Edema
Neuro: Awake, Alert and Disoriented, memory and cognitive dysfunction
Psych: Calm
A/P:
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
#Frequent falls
Discussed with neurology
Plan to do LP and PT prior to and after
PT OT SP
Zyprexa x1
B12 is low
TSH normal
#Cervical myelopathy with spinal cord compression
Neurosurgery consulted
Not sure this si contributing
#B12 deficiency
Start B-12 supplementation
#DM
check A1c-->10.7
cont home Metformin Glipizide Januvia
Increase insulin sliding scale to moderate today
Diabetes consult [facility] for possible initiation of insulin
monitor and titrate insulin regimen as necessary
#HTN
cont home metoprolol Losartan with holding parameters
#HLD
cont statin
#Hx SVT
cont home metoprolol w/ holding parameters
hold Eliquis given frequent falls risk currently outweighs benefit
#BPH
cont home flomax finasteride
dvt ppx Lovenox
DNR/DNI
Total time spent on today's encounter was 52 minutes which included time spent in counseling the patient/family regarding diagnosis and treatment plan as listed above, goals of care, and symptom management. Case was discussed with nursing staff,
specialists, and care coordinators/case management. All labs and imaging personally reviewed by me. Remainder the time spent in detailed review of previous records, lab data, imaging, and other medical provider documentation.
Anticipated Discharge: > 48 hours
Subjective/Interval History
-
Date of Service: March 18, 2024
patient with memory impairment, also gait impairment, no cp or sob. No fever, n/v/d.
Objective Data
-
Labs:
Laboratory Results
03/18/24
06:36
WBC 5.7
Hgb 14.4
Hct 39.4
Plt Count 197
Sodium 135
Potassium 3.9
Chloride 106
Carbon Dioxide 17 L
BUN 15
Creatinine 1.0
Glucose 251 H
Calcium 9.3
Vital Signs:
Vital Signs
Temp Pulse Resp BP Pulse Ox
98.2 F 91 18 153/83 96
03/18/24 07:23 03/18/24 07:23 03/18/24 07:23 03/18/24 07:23 03/18/24 07:23
I&O
03/17/24 03/18/24 03/19/24
06:59 06:59 06:59
Intake Total 480 / 480
Output Total 175 / 175 400 / 400
Balance -175 / -175 80 / 80
[2024-03-18] MEDS: GLUCOTROL XL (EXTENDED RELEASE) 5 MG PO (08:47)
[2024-03-18] MEDS: GLUCOPHAGE XR EXTENDED RELEASE 1000 MG PO ×2 (08:47→17:26)
[2024-03-18] MEDS: CRESTOR 10 MG PO (08:47)
[2024-03-18] MEDS: COZAAR 50 MG PO (08:48)
[2024-03-18] MEDS: TOPROL XL 100 MG PO (08:48)
[2024-03-18] MEDS: PROSCAR 5 MG PO (08:48)
[2024-03-18] MEDS: JANUVIA 100 MG PO (08:48)
[2024-03-18 08:51] LABS: Glycohemoglobin (HgbA1c) 10.7 % (4.0-5.6)
[2024-03-18] MEDS: NOVOLOG FLEXPEN-MODERATE RESISTANCE 5 UNITS SC ×2 (09:00→12:04)
[2024-03-18] MEDS: NOVOLOG FLEXPEN-LOW RESISTANCE SC (09:28)
--- NOTE | 2024-03-18 10:35 | CM ---
CM reviewed chart, patient on Medsitter, will need to be off restraints before SNF can accept. Referrals sent to [facility], and [facility]. CM will continue to follow for all discharge planning needs.
Plan; SNF pending accepting facility, will need insurance auth, will need to be off restraints/medsitter.
--- NOTE | 2024-03-18 10:42 | PN.DE.MGMTRT ---
Insulin Management
- -
03/18/2024: Diabetes Management Consult
84 year old male admitted with progressive confusion, disorientation, falls and urinary incontinence for ~ 3 weeks. outpatient workup concerning for possible NPH as noted on MRI in December plan for outpatient lumbar puncture in March. PMH: HTN, HLD,
SVT on Eliquis, and T2DM. Pt is a poor historian, unable to discuss or provide any hx related to diabetes mgt, information obtained from chart review.
Pt noted for Hyperglycemia on admission with a blood sugar of 400. Was taking Farxiga 10 mg daily, glipizide ER 5 mg daily in AM and 10mg daily in PM, Metformin 1000 mg BID and Januvia 100 mg daily. A1C 10.7%, Cr 1.0, eGFR >60
Pt awake, sitting up in bed, confused, thinks he is at home, unable to discuss diabetes mgt.
He is ordered Metformin 1000 mg BID, Glipizide 5mg in AM and 10mg in PM, Januvia 100mg daily
Of note, his MFM and Glipizide were started yesterday at dinner time and Januvia this morning.
Noted for persistent Hyperglycemia, fasting 251 this AM
Premeal range >200 (207 to 259), requiring 5 units of corrective insulin with meals
Pt is not an ideal candidate for basal bolus insulin given advanced age in setting of poor cognitive status and confusion.
Will cont oral medications and add Lantus 12 units @ HS
Will cont to HOLD Farxiga, will consider resuming it tomorrow if necessary
Diabetes History
- -
Type of Diabetes: 2
Pre-Admission Diabetes Regimen
03/18/24
06:36
Creatinine 1.0
Lab Results
Hemoglobin A1c 10.7 % (4.0-5.6) H 03/18/24 06:36
Insulin Pump Settings
IP Diabetes Regimen
03/17/24 03/17/24 03/18/24
17:41 22:05 06:36
Glucose 251 H
POC Glucose 244 H 253 H
03/18/24
07:40
Glucose
POC Glucose 259 H
Meal type: Breakfast
Amount consumed: 100%
Patient Education
--- NOTE | 2024-03-18 11:10 | PTOTSP ---
ST Acute Care Evaluation
Pt currently presents with oral, pharyngeal, and esophageal parameters that were WFL for all PO intake - no overt s/s of penetration or apsiration noted at bedside. No skilled dysphagia services warranted at this time.
Baseline cognitive linguistic information: Per pt, he wears glasses for reading. He does not wear hearing aids but does report mild difficulty hearing. Per pt report, pt lives at home with his girlfriend. Pt no longer drives (for the past month or
so), 'because I forget stuff.' Pt's girlfriend does all of the grocery shopping. Neither constitution party cooks - they take out a lot. Pt reportedly independently manages his medications and finances.
Pt demonstrates a significant cognitive linguistic impairment at this time (SLUMS = 02/17) characterized by deficits in orientation, registration of information, working memory, expressive language, short term recall, visual spatial organization, and
listening comprehension.
Recommendations:
- Continue with regular solids, thin liquids, meds as tolerated.
- General aspiration precautions.
- No skilled dysphagia services warranted.
- SECRETARY to monitor pt's medical work-up re: cognitive dysfunction (i.e, NPH vs dementia -pending MRI of brain/spine; LP for NPH; etc.) and re-assess as appropriate.
- At this time, pt is NOT SAFE to return home alone. Pt would require 24 hour care with a caregiver managing his medication and finances upon d/c.
[2024-03-18 11:13] LABS: Glucose - Point of Care 255 mg/dl (70-99)
--- NOTE | 2024-03-18 13:31 | PTCARENOTE ---
Pt is restless and agitated , is walking in his room , gait unsteady. RN is encouraging him to use his walker but pt refusing at times. Pt almost fell but this RN was able to catch him and straighten his posture so he would not fall. This whole time
pt was irritable and agitated. was notified, new orderers received.
[2024-03-18] MEDS: VITAMIN B-12 1000 MCG PO (13:44)
[2024-03-18] MEDS: STERILE WATER FOR INJECTION 2.1 ML IM (13:45)
[2024-03-18] MEDS: ZYPREXA 5 MG IM (13:46)
--- NOTE | 2024-03-18 14:20 | CON.NS ---
Consultation
-
Date/Time Consultation Performed: 03/18/2024; 2:25 pm
Performing Provider: Will
Chief Complaint
History of Present Illness
This is a neurosurgical consultation on 84-year-old gentleman, with a history of hypertension, hyperlipidemia, on Eliquis for SVT, who presents with progressive cognitive decline, confusion, urinary incontinence over the past several months/year.
The patient lives with his parquetry layer/girlfriend, who currently is not at home, and is in rehab. This is made his cognitive issues increasingly apparent. He had a noncontrast head CT that demonstrated possible ventriculomegaly. Per chart review,
there is also been note made of possible sundowning at night. Patient also, MRI brain MRI performed in December 2023 was noted on sagittal sequences to have possible compression of the spinal cord from disc/osteophyte complex at C3-4, C4-5. Therefore,
neurosurgery also consulted regarding possible cervical spinal stenosis as cause of patient's symptomatology.
Per chart review, the patient was in the process of being worked up for normal pressure hydrocephalus. Neurology has been consulted, and has evaluated the patient. Plan is likely to perform a large-volume lumbar puncture with physical therapy
evaluation before/after the procedure as inpatient. MRI cervical spine is pending.
Patient seen and examined. Appears to be somewhat tremulous, confused.
Review of Systems
-
A 10 point review of systems including constitutional, ENT, cardiovascular, respiratory, GI, , musculoskeletal, endocrinologic, hematologic was performed, was negative except for stated in HPI.
Medication and Allergies
Home Medications
Home Medications
�Medication �Instructions �Recorded
allopurinol 100 mg tablet 100 mg PO BID Gout 03/17/24
apixaban 5 mg tablet (Eliquis) 5 mg PO BID Blood Clot 03/17/24
Prevention/Tx
dapagliflozin propanediol 10 mg 10 mg PO DAILY Diabetes 03/17/24
tablet (Farxiga)
finasteride 5 mg tablet 5 mg PO DAILY Urinary Issue 03/17/24
furosemide 40 mg tablet 40 mg PO DAILY Fluid 03/17/24
Retention/Swelling
glimepiride 2 mg tablet 4 mg PO DAILY Diabetes 03/17/24
glipizide 5 mg tablet, extended 5 mg PO DAILY Diabetes 03/17/24
release 24 hr
glipizide 5 mg tablet, extended 10 mg PO QPM Diabetes 03/17/24
release 24 hr
losartan 50 mg tablet 50 mg PO DAILY Blood Pressure 03/17/24
metformin 500 mg tablet,extended 1,000 mg PO BID Diabetes 03/17/24
release 24 hr
metoprolol succinate 100 mg 100 mg PO DAILY Blood Pressure 03/17/24
tablet,extended release 24 hr
potassium citrate 10 mEq (1,080 10 meq PO HS Supplement 03/17/24
mg) tablet,extended release
rosuvastatin 10 mg tablet 10 mg PO DAILY High Cholesterol 03/17/24
sitagliptin phosphate 100 mg 100 mg PO DAILY Diabetes 03/17/24
tablet (Januvia)
tamsulosin 0.4 mg capsule 0.4 mg PO DAILY Urinary Issue 03/17/24
Allergies
Allergies
Allergy/AdvReac Type Severity Reaction Status Date / Time
No Known Allergies Allergy Verified 03/17/24 06:46
Physical Exam
-
Exam:
Awake, alert, somewhat confused.
Alert, but oriented x 1, unable to recall where he is, the date.
Cranial nerves II to XII are grossly intact.
Motor: 5/5 strength bilaterally in upper extremities lower extremities, without any pronator drift.
Sensation: Intact to light touch throughout in upper extremities and lower extremities
Reflexes:2+ bilaterally in upper extremities lower extremities. No evidence of clonus, no evidence of Carlos sign
Head is normocephalic, atraumatic.
Neck is supple
Breathing unlabored
Pulses palpable
Abdomen is soft
Extremities are warm
Noncontrast head CT performed on 03/17/2024 demonstrates mild ventricular prominence without any obvious evidence of mass obstructing lesion. MRI of the brain performed without contrast in December 2023 does demonstrate similar findings, without FLAIR
signal hyperintensity surrounding the ventricles to suggest transependymal edema.
Problems
-
Problem Status Onset Code
Poorly controlled diabetes mellitus E11.65
Adult failure to thrive R62.7
Assessment / Plan
-
This is an 84-year-old gentleman that presents with progressive cognitive decline, gait difficulty over the past year, urinary incontinence. MRI from December 2023 does demonstrate ventricular prominence/ventriculomegaly.
Will defer NPH workup to neurology, and they have recommended high-volume lumbar puncture, with pre and post tap gait assessment.
Agree with MRI of the cervical spine to better evaluate for possible cervical spinal stenosis.
-Will follow-up
[2024-03-18 15:04] VITALS: BP 132/74; PULSE 88; O2SAT 96
[2024-03-18 15:13] VITALS: BP 132/70; BP 132/74; PULSE 88; O2SAT 96
[2024-03-18 15:34] VITALS: BP 132/70
[2024-03-18 17:02] LABS: Glucose - Point of Care 177 mg/dl (70-99)
[2024-03-18] MEDS: NOVOLOG FLEXPEN-MODERATE RESISTANCE 1 UNITS SC (17:25)
[2024-03-18] MEDS: LOVENOX 40 MG SC (17:26)
[2024-03-18] MEDS: GLUCOTROL XL (EXTENDED RELEASE) 10 MG PO (17:26)
[2024-03-18 21:05] LABS: Glucose - Point of Care 201 mg/dl (70-99)
[2024-03-18] MEDS: FLOMAX 0.4 MG PO (21:49)
[2024-03-18] MEDS: LANTUS 0.12 UNITS SC (21:49)
--- NOTE | 2024-03-18 22:02 | PTCARENOTE ---
Addendum entered by Keysha Meade RN 03/18/24 22:48:
one time dose of Zyprex 5mg was also ordered. pt's son at bedside. updated on new orders the application of restraints.
Original Note:
pt becoming more agitated, throwing legs over the bed. attempting to hit staff. Ria TRAMMELL aware that restraints were taking off this morning and a new order will need to be placed.
[2024-03-18 23:00] VITALS: BP 161/105
[2024-03-19 07:21] LABS: Hemoglobin 15.1 g/dL (13.0-18.0); Mean Corpuscular Hgb 30.5 pg (27.0-31.0); Mean Corpuscular Volume 84.8 fL (80.0-94.0); Mean Platelet Volume 8.9 fL (7.4-10.4); Platelet Count 213 10^3/uL (130-400); Red Blood Cell Count 4.95 10^6/uL (4.70-6.10); Red Cell Dist. Width 12.7 % (11.5-14.5); White Blood Cell Count 5.8 10^3/uL (4.8-10.8)
[2024-03-19 07:36] VITALS: BP 159/88
[2024-03-19 08:03] LABS: Blood Urea Nitrogen 19 mg/dl (9-20); Calcium 9.3 mg/dl (8.4-10.2); Carbon Dioxide 20 mmol/L (22-30); Chloride 106 mmol/L (98-107); Estimated Creatinine Clearance 53 ml/min; Glucose 166 mg/dl (70-99); Magnesium 1.6 mg/dl (1.6-2.3); Potassium 3.6 mmol/L (3.5-5.1); Sodium 135 mmol/L (135-145); eGFR > 60.00
[2024-03-19 08:12] LABS: Glucose - Point of Care 166 mg/dl (70-99)
[2024-03-19] MEDS: ZYPREXA 2.5 MG PO (08:39)
--- NOTE | 2024-03-19 08:47 | PN.DE.MGMTRT ---
Insulin Management
- -
03/19/2024: Diabetes Management Consult Follow up
Patient admitted with progressive confusion, disorientation, falls and urinary incontinence for ~ 3 weeks. outpatient workup concerning for possible NPH as noted on MRI in December plan for outpatient lumbar puncture in March. PMH: HTN, HLD, SVT on
Eliquis, and T2DM. Pt is a poor historian, unable to discuss or provide any hx related to diabetes mgt, information obtained from chart review.
Pt noted for Hyperglycemia on admission with a blood sugar of 400. Was taking Farxiga 10 mg daily, glipizide ER 5 mg daily in AM and 10mg daily in PM, Metformin 1000 mg BID and Januvia 100 mg daily. A1C 10.7%, Cr 1.0, eGFR >60
Pt awake, oob in chair, confused, thinks he is at home, but looking for his boss, unable to discuss diabetes mgt.
He is ordered Metformin 1000 mg BID, Glipizide 5mg in AM and 10mg in PM, Januvia 100mg daily
03/18 glucose range 177 to 259. Received 12 units lantus @ HS, fasting glucose this AM 166.
Pt is not an ideal candidate for basal bolus insulin given advanced age in setting of poor cognitive status and confusion.
03/19 Will increase glipizide to 10 mg in am and continue 10 mg with dinner, with Januvia, metformin and 12 units lantus @ HS. Will resume Farxiga 10 mg.
Diabetes History
- -
Type of Diabetes: 2
Pre-Admission Diabetes Regimen
03/19/24
05:15
Creatinine 1.1
Lab Results
Hemoglobin A1c 10.7 % (4.0-5.6) H 03/18/24 06:36
Insulin Pump Settings
IP Diabetes Regimen
03/18/24 03/18/24 03/18/24
11:12 17:01 21:03
Glucose
POC Glucose 255 H 177 H 201 H
03/19/24 03/19/24
05:15 08:11
Glucose 166 H
POC Glucose 166 H
Meal type: Dinner
Meal type: Lunch
Meal type: Breakfast
Amount consumed: 100%
Amount consumed: 100%
Amount consumed: 100%
Patient Education
--- NOTE | 2024-03-19 08:58 | W.PN.HOSP.TC ---
Today's Communication/Plan
-
LP. Psych eval. PT OT
Assessment / Plan
Assessment / Plan
Physical exam:
General: Acute on chronically ill
HEENT: Normocephalic, Atraumatic and Moist Mucous Membranes
Respiratory: Clear to Auscultation; Negative Wheezes, Rales or Rhonchi
Cardiac: Regular Rhythm and S1/S2
GI: Soft, Nontender and Nondistended
Musculoskeletal: No Clubbing, No Cyanosis and No Edema
Neuro: Awake, lethargic but responds to verbal stimuli, and Disoriented, memory and cognitive dysfunction
Psych: Calm
A/P:
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
#Frequent falls
Discussed with neurology
Plan to do LP and PT prior to and after
PT OT SP
Zyprexa as needed
Psychiatry evaluation ([place] [facility] texted to psychiatry today)
B12 is low
TSH normal
Updated son over the phone today
#Cervical myelopathy with spinal cord compression
Less likely this is contributing
Noticed MRI of the cervical spine
Appreciate neurosurgery input and follow-up final recommendations
#B12 deficiency
Continue B-12 supplementation
#DM
check A1c-->10.7
cont home Metformin Glipizide Januvia
Increase insulin sliding scale to moderate today
Diabetes consult EPIC WILLOW ANALYST appreciated
monitor and titrate insulin regimen as necessary
#HTN
cont home metoprolol Losartan with holding parameters
#HLD
cont statin
#Hx SVT
cont home metoprolol w/ holding parameters
hold Eliquis given frequent falls risk currently outweighs benefit
#BPH
cont home flomax finasteride
dvt ppx Lovenox
DNR/DNI
Total time spent on today's encounter was 52 minutes which included time spent in counseling the patient/family regarding diagnosis and treatment plan as listed above, goals of care, and symptom management. Case was discussed with nursing staff,
specialists, and care coordinators/case management. All labs and imaging personally reviewed by me. Remainder the time spent in detailed review of previous records, lab data, imaging, and other medical provider documentation.
Anticipated Discharge: 24 - 48 hours
Subjective/Interval History
-
Date of Service: March 19, 2024
Patient was agitated earlier and this morning and required antipsychotics. By the time of my evaluation patient was more calm and relatively sleepy. Afebrile
Objective Data
-
Labs:
Laboratory Results
03/19/24
05:15
WBC 5.8
Hgb 15.1
Hct 42.0
Plt Count 213
Sodium 135
Potassium 3.6
Chloride 106
Carbon Dioxide 20 L
BUN 19
Creatinine 1.1
Glucose 166 H
Calcium 9.3
Vital Signs:
Vital Signs
Temp Pulse Resp BP Pulse Ox
98 F 90 22 159/88 96
03/19/24 07:36 03/19/24 07:36 03/19/24 07:36 03/19/24 07:36 03/19/24 07:36
I&O
03/18/24 03/19/24 03/20/24
06:59 06:59 06:59
Intake Total 480 / 480 700 / 700
Output Total 400 / 400
Balance 80 / 80 700 / 700
[2024-03-19 09:38] VITALS: BP 131/80; PULSE 95; O2SAT 95
--- NOTE | 2024-03-19 09:57 | W.PN.UPDATE ---
Documented by User: Jada Medrano PA-C 03/19/24 12:00
Update Note
Progress Note Update
MRI Cervical spine reviewed by Dr. Solis. No acute neurosurgical intervention indicated at this time. Will await results of high volume lumbar puncture and further work up per neurology.
IMPRESSION:
1. Chronic advanced degenerative changes of the cervical spine including degenerative disc disease with multilevel disc bulges, uncovertebral arthrosis, and facet arthrosis.
2. Moderate to severe spinal canal stenosis at C6-C7.
3. Moderate spinal canal stenoses at C4-C5, C5-C6, and C7-T1.
4. Mild spinal canal stenosis at C3-C4.
5. Varying degrees of chronic multilevel bilateral neuroforaminal stenosis, most severe bilaterally from the C3 through C7 levels.

Documented by User: Yoselyn Solis MD 03/19/24 20:28
Update Note
Progress Note Update
MRI Cervical spine reviewed by Dr. Solis. No acute neurosurgical intervention indicated at this time. Will await results of high volume lumbar puncture and further work up per neurology.
IMPRESSION:
1. Chronic advanced degenerative changes of the cervical spine including degenerative disc disease with multilevel disc bulges, uncovertebral arthrosis, and facet arthrosis.
2. Moderate to severe spinal canal stenosis at C6-C7.
3. Moderate spinal canal stenoses at C4-C5, C5-C6, and C7-T1.
4. Mild spinal canal stenosis at C3-C4.
5. Varying degrees of chronic multilevel bilateral neuroforaminal stenosis, most severe bilaterally from the C3 through C7 levels.
ATTENDING ATTESTATION:
MRI reviewed. Will await further workup via lumbar puncture.
[2024-03-19] MEDS: TOPROL XL 100 MG PO (10:13)
[2024-03-19] MEDS: VITAMIN B-12 1000 MCG PO (10:14)
[2024-03-19] MEDS: JANUVIA 100 MG PO (10:14)
[2024-03-19] MEDS: FARXIGA 10 MG PO (10:14)
[2024-03-19] MEDS: COZAAR 50 MG PO (10:14)
[2024-03-19] MEDS: CRESTOR 10 MG PO (10:14)
[2024-03-19] MEDS: GLUCOPHAGE XR EXTENDED RELEASE 1000 MG PO (10:15)
[2024-03-19] MEDS: PROSCAR 5 MG PO (10:15)
[2024-03-19] MEDS: NOVOLOG FLEXPEN-MODERATE RESISTANCE 1 UNITS SC ×2 (10:22→17:37)
[2024-03-19] MEDS: GLUCOTROL XL (EXTENDED RELEASE) PO ×3 (10:25→17:50)
--- NOTE | 2024-03-19 11:14 | PTCARENOTE ---
Patient with agitated and restless this am. One time dose of Xyprexa given per orders. Restraints removed this am. Patient currently in chair and cooperative.
--- NOTE | 2024-03-19 11:22 | CS.PSYCHR ---
Consult Summary - Psychiatry
-
Pt is 84 yo male with history of progressive decline for the past few months per son, presented with progressive confusion, falls, and urinary incontinence for the past 3 weeks. Cognitive problems reportedly became more apparent when pt's girlfriend
went to rehab for a broken hip. Pt noted alert on admission, oriented to person and month, disoriented to time and place, poor historian. Initial history obtained from son, Ellis. Since admission, pt noted to be restless, then increasingly
agitated and aggressive. Pt was given Zyprexa 5 mg twice yesterday pm, then 2.5 mg this morning. Pt seen sitting in chair, drowsy with head leaning to the side on pillow. Breakfast partially eaten. Pt too drowsy to answer questions. Pt
currently calm, with no apparent EPS from Zyprexa. Pt seen by Neurology, is having LP today for suspected NPH. QTc on admission 493 on 03/17.
PMH: diabetes, HTN, HLD, SVT
SH: living with girlfriend, who is in rehab after breaking her hip. Reportedly son Ellis is POA
MSE: drowsy, sedated, sitting up in chair with head to the side on pillow. No agitation at present.
Imp: Cognitive impairment, possibly due to Normal pressure hydrocephalus, with agitation/aggression. Pt also has ataxia/falls and urinary incontinence.
Pt currently sedated/calm after receiving Zyprexa last pm and this morning
Rec: continue Zyprexa prn for any further agitation, aggression; monitor prolonged QTc
will follow
[2024-03-19 12:09] LABS: Glucose - Point of Care 252 mg/dl (70-99)
[2024-03-19] MEDS: NOVOLOG FLEXPEN-MODERATE RESISTANCE 5 UNITS SC (12:44)
--- NOTE | 2024-03-19 14:20 | CM ---
Patient seen asleep in chair, restraints removed. Patient remains on medsitter. CM left voicemail for patients sonEllis, regarding SNF/LTC options when patient is stable for discharge. [facility]
could offer a bed once patient is off medsitter. CM will continue to follow for all discharge planning needs.
Plan; SNF/LTC once medically stable, needs to be off medistter for 24 hrs.
[2024-03-19 14:41] LABS: INR 1.05; PT 13.6 Sec (11.4-14.6)
[2024-03-19 14:43] VITALS: BP 100/62; BP_SYST 91
[2024-03-19 16:36] VITALS: BP 132/72
--- NOTE | 2024-03-19 17:05 | PTCARENOTE ---
Patient sent to IR and returned to floor. Report given from IR nurse and told that patient was uncooperative, LP was not able to be performed and will reattempt tomorrow with sedations.
[2024-03-19 17:06] LABS: Glucose - Point of Care 180 mg/dl (70-99)
[2024-03-19] MEDS: LOVENOX 40 MG SC (17:41)
[2024-03-19] MEDS: GLUCOPHAGE XR EXTENDED RELEASE PO ×2 (17:41→17:49)
--- NOTE | 2024-03-19 17:55 | PTCARENOTE ---
Patient refusing to take PO glipizide and metformin this even. Patient stating to 'leave him the fuck alone' and balling his fist. Hospitalist and chemical educator made aware of patients refusal. Was able to administer novolog insulin.
--- NOTE | 2024-03-19 17:59 | PTCARENOTE ---
Patient refusing to take PO glipizide and metformin this even. Patient stating to 'leave me the fuck alone' and balling his fist. Hospitalist and early childhood special educator made aware of patients refusal. Was able to administer novolog insulin.
[2024-03-19 21:27] LABS: Glucose - Point of Care 187 mg/dl (70-99)
[2024-03-19] MEDS: LANTUS 0.12 UNITS SC (22:10)
[2024-03-19 23:10] VITALS: BP 87/48
[2024-03-20] MEDS: FLOMAX PO (00:23)
[2024-03-20 03:00] VITALS: BP 132/74
[2024-03-20 07:28] LABS: Glucose - Point of Care 98 mg/dl (70-99)
[2024-03-20] MEDS: NOVOLOG FLEXPEN-MODERATE RESISTANCE SC ×3 (07:33→16:49)
[2024-03-20 07:40] VITALS: BP 135/76
--- NOTE | 2024-03-20 08:11 | PN.DE.MGMTRT ---
Insulin Management
- -
03/20/2024: Diabetes Management Consult Follow up
Patient admitted with progressive confusion, disorientation, falls and urinary incontinence for ~ 3 weeks. outpatient workup concerning for possible NPH as noted on MRI in December plan for outpatient lumbar puncture in March. PMH: HTN, HLD, SVT on
Eliquis, and T2DM. Pt is a poor historian, unable to discuss or provide any hx related to diabetes mgt, information obtained from chart review.
Hyperglycemic on admission with a blood sugar of 400. Was taking Farxiga 10 mg daily, glipizide ER 5 mg daily in AM and 10mg daily in PM, Metformin 1000 mg BID and Januvia 100 mg daily. A1C 10.7%, Cr 1.0, eGFR >60
Pt awakens when name called, confused, unable to discuss diabetes mgt.
He is ordered Metformin 1000 mg BID, Glipizide 5mg in AM and 10mg in PM, Januvia 100mg daily
03/19 glucose range 166 to 252. Received 12 units lantus @ HS, fasting glucose this AM 98.
Pt is not an ideal candidate for basal bolus insulin given advanced age in setting of poor cognitive status and confusion.
03/20 Glipizide increased from 5 mg in AM to 10 mg AM and with dinner Januvia, metformin and Farxiga 10 mg. Will stop HS lantus. Patient has been refusing oral medications. Fasting glucose this AM 98, will stop lantus.
Will follow for need to resume lantus or adjust PO medications.
Diabetes History
- -
Type of Diabetes: 2
Pre-Admission Diabetes Regimen
Lab Results
Hemoglobin A1c 10.7 % (4.0-5.6) H 03/18/24 06:36
Insulin Pump Settings
IP Diabetes Regimen
03/19/24 03/19/24 03/19/24
08:11 12:08 17:04
POC Glucose 166 H 252 H 180 H
03/19/24 03/20/24
21:25 07:22
POC Glucose 187 H 98
Patient Education
--- NOTE | 2024-03-20 08:21 | W.PN.NEURO.1 ---
Today's Communication / Plan
-
-Would attempt LP today with gait eval before and after
-Minimize sedating medications as able understanding if agitated and at risk for injury may still require
---If patient excessively drowsy from Zyprexa and agitation continues to be issue then I would pursue the LP as an outpatient as he needs a good gait assessment before and after the LP and agitation or sedation from medication can prohibit this
Neuro Assessment/Plan
Assessment
84-year-old male presented to hospital due to confusion frequent falls and ambulatory difficulty. Patient reports he started to have gait issues around 1 year ago but this spontaneously improved but the gait issues again recurred around 2 to 3
months ago when he started using walker noting that his balance and sensation of spatial awareness seem to be abnormal. Family had related that he seemed to have some confusion and memory difficulties that worsened after his longtime partner had
developed medical issues. He has been being worked up for NPH based on outpatient brain imaging.. Patient reports some urinary incontinence and urgency for around 1 to 2 months.
Brain MRI reviewed which does show ventriculomegaly
Assessment: High suspicion of symptomatic normal pressure hydrocephalus, lack of hyperreflexia and characteristic history I think makes a cervical myelopathy less likely as cause of gait issues. No significant peripheral neuropathy.
Subjective/Objective
Subjective Data
Date of Service: March 20, 2024
Had had Zyprexa given PM of 03/18 and AM of 03/19, this morning denies headache, awake and agreeable to walking and activity
Objective Data
Vital Signs
Temp Pulse Resp BP Pulse Ox
98.3 F 87 18 132/74 95
03/19/24 23:10 03/20/24 03:00 03/19/24 23:10 03/20/24 03:00 03/19/24 23:10
PT 13.6 Sec (11.4-14.6) 03/19/24 14:12
INR 1.05 03/19/24 14:12
Sodium 135 mmol/L (135-145) 03/19/24 05:15
Potassium 3.6 mmol/L (3.5-5.1) 03/19/24 05:15
BUN 19 mg/dl (9-20) 03/19/24 05:15
Glucose 166 mg/dl (70-99) H 03/19/24 05:15
Calcium 9.3 mg/dl (8.4-10.2) 03/19/24 05:15
Vitamin B12 237 pg/ml (239-931) L 03/17/24 00:43
Patient Allergies
No Known Allergies Allergy (Verified 03/17/24 06:46)
Review of Systems
-
History Source: Patient
All other systems: Reviewed and negative
Constitutional: No Symptoms
EENT: No Symptoms Reported
Respiratory: No Symptoms
Cardiac: No Symptoms
Abdomen/GI: No Symptoms
Genitourinary: No Symptoms
Musculoskeletal: No Symptoms
Skin: No Symptoms
Neuro: No Symptoms
Endocrine: No Symptoms
Hematologic / Lymphatic: No Symptoms
Allergy / Immunology: No Symptoms
Physical Exam
-
General: Comfortable
Eyes: No Ptosis
HEENT: Normocephalic
Neck: No Bruits Bilaterally
Respiratory: Clear to Auscultation
Cardiac: Regular Rhythm
GI: Normal Bowel Sounds
Skin: Unremarkable
Extremities: No Clubbing
Psych: Confused; Negative Agitated or Intact Judgement/Insight
Extended Neurological Exam
Attention Span & Concentration: Awake, Alert, Interactive and Other (mildly drowsy, awakens easily, conversational, cognitive impairment apparent)
Memory: Reduced
Tremor: Hand Tremor Absent
Involuntary Movement: None
Speech: Negative Expressive Aphasia, Receptive Aphasia or Dysarthric
Cranial Nerve II: Left Eye: Pupillary Reactivity Unremarkable and Pupillary Size Unremarkable
Cranial Nerve II: Right Eye: Pupillary Reactivity Unremarkable and Pupillary Size Unremarkable
Cranial Nerves III, IV, : Extraocular Movement: Extraocular Movement Full in all Directions
Muscle Strength, Overall: Full Throughout
Pronator Drift: No Drift in Upper Extremities
Deep Tendon Reflexes: Trace Throughout
Data Reviewed
-
CT Head: Report Reviewed and Image Reviewed
MRI Head: Report Reviewed and Image Reviewed
[2024-03-20 08:26] LABS: Hematocrit 42.1 % (39.0-52.0); Hemoglobin 15.2 g/dL (13.0-18.0); Mean Corp Hgb Conc. 36.1 g/dL (33.0-37.0); Mean Corpuscular Hgb 30.3 pg (27.0-31.0); Mean Platelet Volume 8.5 fL (7.4-10.4); Platelet Count 221 10^3/uL (130-400); Red Blood Cell Count 5.01 10^6/uL (4.70-6.10); Red Cell Dist. Width 13.2 % (11.5-14.5); White Blood Cell Count 7.7 10^3/uL (4.8-10.8)
--- NOTE | 2024-03-20 08:51 | W.PN.HOSP.TC ---
Today's Communication/Plan
-
IV fluids. LP.
Assessment / Plan
Assessment / Plan
Physical exam:
General: Acute on chronically ill
HEENT: Normocephalic, Atraumatic and Moist Mucous Membranes
Respiratory: Clear to Auscultation; Negative Wheezes, Rales or Rhonchi
Cardiac: Regular Rhythm and S1/S2
GI: Soft, Nontender and Nondistended
Musculoskeletal: No Clubbing, No Cyanosis and No Edema
Neuro: Awake, lethargic but responds to verbal stimuli, and Disoriented, memory and cognitive dysfunction
Psych: Calm
A/P:
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
#Frequent falls
Discussed with neurology
Plan to do LP and PT prior to and after
PT OT SP
Zyprexa as needed but try to hold off to avoid oversedation and decreased doses today.
Psychiatry evaluation appreciated
B12 is low
TSH normal
Updated son over the phone yesterday
#Cervical myelopathy with spinal cord compression
Less likely this is contributing
Noticed MRI of the cervical spine
Appreciate neurosurgery input and follow-up final recommendations
#TIMOTHY
Start IV fluids of normal saline
Avoid nephrotoxic including ARB
Monitor in a.m.
#B12 deficiency
Continue B-12 supplementation
#DM
check A1c-->10.7
cont home Glipizide Januvia, hold metformin due to TIMOTHY
Increase insulin sliding scale to moderate today
Diabetes consult CANINE SERVICE TEACHER appreciated
monitor and titrate insulin regimen as necessary
#HTN
cont home metoprolol with holding parameters
Hold losartan due to TIMOTHY
#HLD
cont statin
#Hx SVT
cont home metoprolol w/ holding parameters
hold Eliquis given frequent falls risk currently outweighs benefit
#BPH
cont home flomax finasteride
dvt ppx Lovenox
DNR/DNI
Total time spent on today's encounter was 52 minutes which included time spent in counseling the patient/family regarding diagnosis and treatment plan as listed above, goals of care, and symptom management. Case was discussed with nursing staff,
specialists, and care coordinators/case management. All labs and imaging personally reviewed by me. Remainder the time spent in detailed review of previous records, lab data, imaging, and other medical provider documentation.
Anticipated Discharge: 24 - 48 hours
Subjective/Interval History
-
Date of Service: March 20, 2024
Patient sleepy today. Did not receive antipsychotics last evening or today. Afebrile
Objective Data
-
Labs:
Laboratory Results
03/20/24
08:05
WBC 7.7
Hgb 15.2
Hct 42.1
Plt Count 221
Sodium Pending
Potassium Pending
Chloride Pending
Carbon Dioxide Pending
BUN Pending
Creatinine Pending
Glucose Pending
Calcium Pending
Vital Signs:
Vital Signs
Temp Pulse Resp BP Pulse Ox
98.0 F 87 16 135/76 96
03/20/24 07:40 03/20/24 07:40 03/20/24 07:40 03/20/24 07:40 03/20/24 07:40
I&O
03/19/24 03/20/24 03/21/24
06:59 06:59 06:59
Intake Total 700 / 700 120 / 120
Balance 700 / 700 120 / 120
[2024-03-20] MEDS: CRESTOR PO (09:56)
[2024-03-20] MEDS: COZAAR PO (09:56)
[2024-03-20] MEDS: FARXIGA PO (09:56)
[2024-03-20] MEDS: GLUCOPHAGE XR EXTENDED RELEASE PO (09:56)
[2024-03-20] MEDS: JANUVIA PO (09:57)
[2024-03-20] MEDS: TOPROL XL PO (09:57)
[2024-03-20] MEDS: GLUCOTROL XL (EXTENDED RELEASE) PO (09:57)
[2024-03-20] MEDS: PROSCAR PO (09:57)
[2024-03-20] MEDS: VITAMIN B-12 PO (09:58)
[2024-03-20 10:10] LABS: Blood Urea Nitrogen 31 mg/dl (9-20); Calcium 9.6 mg/dl (8.4-10.2); Carbon Dioxide 19 mmol/L (22-30); Chloride 108 mmol/L (98-107); Estimated Creatinine Clearance 41 ml/min; Glucose 82 mg/dl (70-99); Potassium 3.7 mmol/L (3.5-5.1); Sodium 137 mmol/L (135-145); eGFR 49.87
--- NOTE | 2024-03-20 10:34 | CM ---
Patient remains on Med-Sitter
CM spoke with patient's son, Ellis, via phone; SNF recommendation, site preference choice, and need for insurance Authorization explained
Son stated he will investigate facilities and call CM with preference bill.
Plan: discharge to SNF when stable and off medsitter for 24 hours; pending bed availability and AUTH approval
--- NOTE | 2024-03-20 10:52 | PTOTSP ---
ST HOLD NOTE
Chart reviewed. LP still has not been performed. Will hold off on cognitive linguistic re-assessment once LP has been performed.
Again, as indicated in initial cognitive linguistic evaluation:
Pt demonstrates a significant cognitive linguistic impairment at this time (SLUMS = 02/17) characterized by deficits in orientation, registration of information, working memory, expressive language, short term recall, visual spatial organization, and
listening comprehension.
Recommendations:
- PUZZLE ASSEMBLER to monitor pt's medical work-up re: cognitive dysfunction (i.e, NPH vs dementia -pending MRI of brain/spine; LP for NPH; etc.) and re-assess as appropriate.
- At this time, pt is NOT SAFE to return home alone. Pt would require 24 hour care with a caregiver managing his medication and finances upon d/c.
--- NOTE | 2024-03-20 11:32 | PTCARENOTE ---
Med sitter in place, no issues at this time.
[2024-03-20 11:54] LABS: Glucose - Point of Care 130 mg/dl (70-99)
--- NOTE | 2024-03-20 13:00 | W.PN.UPDATE ---
Update Note
Progress Note Update
patient seen chart reviewed. spoke w nursing. nursing reported patient had been sleeping all morning. when i saw him he was awake though not alert. he told me it was the month of july although he got the year and place correct. he said he was
'groggy' and he did indeed appear groggy. went over the medical issues eg ?nph and need for lp. noted he needs to be awake and alert to assess his gait before and after. he is certainly not awake and alert at present. dc'ed the 5 mg prn of
olanzapine. there is a 2.5 mg prn. he had received a total of 12.5 mg in the past several days which may have been too much for him. will touch base w him in the am.
[2024-03-20 13:14] VITALS: BP 140/84; PULSE 98; O2SAT 96
[2024-03-20 15:25] VITALS: BP 120/75
[2024-03-20 15:54] VITALS: BP 134/82; PULSE 104
[2024-03-20 16:32] LABS: Glucose - Point of Care 134 mg/dl (70-99)
[2024-03-20] MEDS: NSS 1000 IV (17:00)
[2024-03-20] MEDS: GLUCOTROL XL (EXTENDED RELEASE) 10 MG PO (19:23)
[2024-03-20] MEDS: LOVENOX SC (19:28)
[2024-03-20 21:08] LABS: Glucose - Point of Care 112 mg/dl (70-99)
--- NOTE | 2024-03-20 21:22 | PTCARENOTE ---
Assumed care of pt from previous nurse. Pt denies pain. Pt uncooperative with some care, grabs at nurse at times, unable to be redirected, medsitter in place. Pt call [facility] is within reach, pt does not ring robson., rounding in place, bed alarm in
place. will cont to monitor
[2024-03-20] MEDS: FLOMAX 0.4 MG PO (22:06)
[2024-03-20 23:30] VITALS: BP 147/80
[2024-03-21] MEDS: NSS 1000 IV (05:08)
[2024-03-21 05:22] LABS: Hematocrit 44.8 % (39.0-52.0); Hemoglobin 16.1 g/dL (13.0-18.0); Mean Corp Hgb Conc. 35.9 g/dL (33.0-37.0); Mean Corpuscular Volume 86.2 fL (80.0-94.0); Mean Platelet Volume 8.5 fL (7.4-10.4); Platelet Count 237 10^3/uL (130-400); White Blood Cell Count 8.1 10^3/uL (4.8-10.8)
[2024-03-21 05:44] LABS: Blood Urea Nitrogen 26 mg/dl (9-20); Calcium 9.6 mg/dl (8.4-10.2); Carbon Dioxide 18 mmol/L (22-30); Chloride 109 mmol/L (98-107); Estimated Creatinine Clearance 44 ml/min; Glucose 93 mg/dl (70-99); Potassium 3.8 mmol/L (3.5-5.1); Sodium 141 mmol/L (135-145); eGFR 54.51
[2024-03-21 07:27] LABS: Glucose - Point of Care 131 mg/dl (70-99)
[2024-03-21] MEDS: NOVOLOG FLEXPEN-MODERATE RESISTANCE SC ×3 (07:30→17:17)
--- NOTE | 2024-03-21 07:48 | PN.DE.MGMTRT ---
Insulin Management
- -
03/21/2024: Diabetes Management Consult Follow up
Patient admitted with progressive confusion, disorientation, falls and urinary incontinence for ~ 3 weeks. outpatient workup concerning for possible NPH as noted on MRI in December plan for outpatient lumbar puncture in March. PMH: HTN, HLD, SVT on
Eliquis, and T2DM. Pt is a poor historian, unable to discuss or provide any hx related to diabetes mgt, information obtained from chart review.
Hyperglycemic on admission with a blood sugar of 400. Was taking Farxiga 10 mg daily, glipizide ER 5 mg daily in AM and 10mg daily in PM, Metformin 1000 mg BID and Januvia 100 mg daily. A1C 10.7%, Cr 1.0, eGFR >60
Pt awakens when name called, confused, unable to discuss diabetes mgt.
He is ordered Metformin 1000 mg BID, Glipizide 5mg in AM and 10mg in PM, Januvia 100mg daily
03/20 Patient NPO most of day, glucose range 98 to 134. HS Lantus stopped, fasting glucose this AM 93 Venous.
Pt is not an ideal candidate for basal bolus insulin given advanced age in setting of poor cognitive status and confusion.
03/20 Glipizide increased from 5 mg in AM to 10 mg AM and with dinner Januvia 100 mg daily, metformin 1000 mg BID and Farxiga 10 mg. Patient has been refusing oral medications did not take AM medications but did receive dinner glipizide.
03/21 Patient did receive oral medications, he did eat breakfast.
Will follow for needed adjustments to regimen.
Diabetes History
- -
Type of Diabetes: 2
Pre-Admission Diabetes Regimen
03/20/24 03/21/24
08:05 04:38
Creatinine 1.4 H 1.3
Lab Results
Hemoglobin A1c 10.7 % (4.0-5.6) H 03/18/24 06:36
Insulin Pump Settings
IP Diabetes Regimen
03/20/24 03/20/24 03/20/24
08:05 11:42 16:29
Glucose 82
POC Glucose 130 H 134 H
03/20/24 03/21/24 03/21/24
21:05 04:38 07:26
Glucose 93
POC Glucose 112 H 131 H
Meal type: Lunch
Patient Education
[2024-03-21 07:49] VITALS: BP 169/84
--- NOTE | 2024-03-21 09:06 | W.PN.HOSP.TC ---
Today's Communication/Plan
-
IV fluids. Discharge disposition planning
Assessment / Plan
Assessment / Plan
Physical exam:
General: Acute on chronically ill
HEENT: Normocephalic, Atraumatic and Moist Mucous Membranes
Respiratory: Clear to Auscultation; Negative Wheezes, Rales or Rhonchi
Cardiac: Regular Rhythm and S1/S2
GI: Soft, Nontender and Nondistended
Musculoskeletal: No Clubbing, No Cyanosis and No Edema
Neuro: Awake, lethargic but responds to verbal stimuli, and Disoriented, memory and cognitive dysfunction
Psych: Calm
A/P:
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
#Frequent falls
Discussed with neurology
Plan to do LP and PT prior to and after. If unable to do LP and PT due to conditioning and or cognitive deficits then we will plan to do outpatient and will start working on discharge planning.
PT OT SP
Zyprexa as needed but try to hold off to avoid oversedation and decreased doses yesterday.
Psychiatry evaluation appreciated
B12 is low
TSH normal
Updated son over the phone yesterday
#Cervical myelopathy with spinal cord compression
Less likely this is contributing
Noticed MRI of the cervical spine
Appreciate neurosurgery input and follow-up final recommendations
#TIMOTHY
Start IV fluids of normal saline
Cr up to 1.4--> today down to 1.3 today
Avoid nephrotoxic including ARB
Monitor in a.m.
#B12 deficiency
Continue B-12 supplementation
#DM
check A1c-->10.7
cont home Glipizide Januvia, hold metformin due to TIMOTHY
Increase insulin sliding scale to moderate today
Diabetes consult PERFORATOR TYPIST appreciated
monitor and titrate insulin regimen as necessary
#HTN
cont home metoprolol with holding parameters
Hold losartan due to TIMOTHY
#HLD
cont statin
#Hx SVT
cont home metoprolol w/ holding parameters
hold Eliquis given frequent falls risk currently outweighs benefit
#BPH
cont home flomax finasteride
dvt ppx Lovenox
DNR/DNI
Anticipated Discharge: 24 - 48 hours
Subjective/Interval History
-
Date of Service: March 21, 2024
Patient alert but disoriented. Afebrile
Objective Data
-
Labs:
Laboratory Results
03/21/24
04:38
WBC 8.1
Hgb 16.1
Hct 44.8
Plt Count 237
Sodium 141
Potassium 3.8
Chloride 109 H
Carbon Dioxide 18 L
BUN 26 H
Creatinine 1.3
Glucose 93
Calcium 9.6
Vital Signs:
Vital Signs
Temp Pulse Resp BP Pulse Ox
98.2 F 103 20 169/84 100
03/21/24 07:49 03/21/24 07:49 03/21/24 07:49 03/21/24 07:49 03/21/24 07:49
I&O
03/20/24 03/21/24 03/22/24
06:59 06:59 06:59
Intake Total 120 / 120 1020 / 1020
Output Total 175 / 175
Balance 120 / 120 845 / 845
[2024-03-21] MEDS: TOPROL XL 100 MG PO (09:17)
[2024-03-21] MEDS: GLUCOTROL XL (EXTENDED RELEASE) 10 MG PO (09:17)
[2024-03-21] MEDS: VITAMIN B-12 1000 MCG PO (09:17)
[2024-03-21] MEDS: PROSCAR 5 MG PO (09:17)
[2024-03-21] MEDS: JANUVIA 100 MG PO (09:18)
[2024-03-21] MEDS: FARXIGA 10 MG PO (09:18)
[2024-03-21] MEDS: CRESTOR 10 MG PO (09:18)
[2024-03-21 10:33] VITALS: BP 105/72
[2024-03-21 11:52] LABS: Glucose - Point of Care 165 mg/dl (70-99)
[2024-03-21] MEDS: ZYPREXA ZYDIS (ORALLY DISINTEGRATING) 2.5 MG PO (12:18)
[2024-03-21] MEDS: NSS IV (14:27)
[2024-03-21] MEDS: GLUCOPHAGE XR EXTENDED RELEASE PO (14:32)
--- NOTE | 2024-03-21 15:44 | W.PN.UPDATE ---
Update Note
Progress Note Update
patient seen chart reviewed. patient remains confused and unable to engage in any meaningful discussion. he has not only med sitter but a one to one as well. he was agitated earlier today and received a prn of zyprexa 2.5 mg at noon. he keeps
wanting to get up and walk around according to nsg but is unstable when on his feet. made no changes in his meds. lp has still not been able to be done. i would minimize as much as possible any meds which can cause psychosis.
[2024-03-21 16:37] VITALS: BP 146/72
[2024-03-21] MEDS: GLUCOTROL XL (EXTENDED RELEASE) PO (17:07)
[2024-03-21] MEDS: LOVENOX SC (17:07)
[2024-03-21 17:15] LABS: Glucose - Point of Care 168 mg/dl (70-99)
[2024-03-21] MEDS: FLOMAX 0.4 MG PO (21:37)
[2024-03-21 21:59] LABS: Glucose - Point of Care 113 mg/dl (70-99)
[2024-03-21 23:00] VITALS: BP 129/68
[2024-03-22] MEDS: NSS IV (01:51)
--- NOTE | 2024-03-22 07:14 | PN.DE.MGMTRT ---
Insulin Management
- -
03/22/2024: Diabetes Management Consult Follow up
Patient admitted with progressive confusion, disorientation, falls and urinary incontinence for ~ 3 weeks. outpatient workup concerning for possible NPH as noted on MRI in December plan for outpatient lumbar puncture in March. PMH: HTN, HLD, SVT on
Eliquis, and T2DM. Pt is a poor historian, unable to discuss or provide any hx related to diabetes mgt, information obtained from chart review.
Hyperglycemic on admission with a blood sugar of 400. Was taking Farxiga 10 mg daily, glipizide ER 5 mg daily in AM and 10mg daily in PM, Metformin 1000 mg BID and Januvia 100 mg daily. A1C 10.7%, Cr 1.0, eGFR >60
Pt awakens when name called, confused, restless, unable to discuss diabetes mgt.
He is ordered Metformin 1000 mg BID, Glipizide 5mg in AM and 10mg in PM, Januvia 100mg daily
HS Lantus stopped 03/20, fasting glucose range 98 to 131. Will not resume lantus.
Pt is not an ideal candidate for basal bolus insulin given advanced age in setting of poor cognitive status and confusion.
03/21 Patient did receive oral medications, he did eat breakfast, but did not take dinner medication. Glucose is acceptable, 93 to 168, will make no change to regimen.
Will follow for needed adjustments to regimen.
Diabetes History
- -
Type of Diabetes: 2
Pre-Admission Diabetes Regimen
Lab Results
Hemoglobin A1c 10.7 % (4.0-5.6) H 03/18/24 06:36
Insulin Pump Settings
IP Diabetes Regimen
03/21/24 03/21/24 03/21/24
07:26 11:41 16:53
POC Glucose 131 H 165 H 168 H
03/21/24
21:57
POC Glucose 113 H
Meal type: Lunch
Meal type: Breakfast
Amount consumed: 20%
Amount consumed: 50%
Patient Education
[2024-03-22 07:25] VITALS: BP 148/77
[2024-03-22 07:46] LABS: Glucose - Point of Care 164 mg/dl (70-99)
[2024-03-22 07:58] LABS: Hematocrit 45.7 % (39.0-52.0); Hemoglobin 16.2 g/dL (13.0-18.0); Mean Corp Hgb Conc. 35.4 g/dL (33.0-37.0); Mean Corpuscular Hgb 30.3 pg (27.0-31.0); Mean Corpuscular Volume 85.6 fL (80.0-94.0); Mean Platelet Volume 8.6 fL (7.4-10.4); Platelet Count 274 10^3/uL (130-400); Red Blood Cell Count 5.34 10^6/uL (4.70-6.10); Red Cell Dist. Width 13.2 % (11.5-14.5); White Blood Cell Count 8.2 10^3/uL (4.8-10.8)
[2024-03-22 08:56] LABS: Blood Urea Nitrogen 32 mg/dl (9-20); Calcium 9.9 mg/dl (8.4-10.2); Carbon Dioxide 12 mmol/L (22-30); Chloride 112 mmol/L (98-107); Estimated Creatinine Clearance 44 ml/min; Glucose 157 mg/dl (70-99); Magnesium 1.9 mg/dl (1.6-2.3); Phosphorus 4.3 mg/dl (2.5-4.5); Potassium 4.9 mmol/L (3.5-5.1); Sodium 143 mmol/L (135-145); eGFR 54.51
[2024-03-22] MEDS: VITAMIN B-12 1000 MCG PO (09:11)
[2024-03-22] MEDS: GLUCOPHAGE XR EXTENDED RELEASE PO ×2 (09:11→11:44)
[2024-03-22] MEDS: JANUVIA PO ×2 (09:11→11:44)
[2024-03-22] MEDS: GLUCOTROL XL (EXTENDED RELEASE) PO ×3 (09:12→17:32)
[2024-03-22] MEDS: TOPROL XL 100 MG PO (09:12)
[2024-03-22] MEDS: FARXIGA PO ×2 (09:12→11:44)
[2024-03-22] MEDS: PROSCAR 5 MG PO (09:13)
[2024-03-22] MEDS: CRESTOR PO ×2 (09:13→11:44)
[2024-03-22] MEDS: NOVOLOG FLEXPEN-MODERATE RESISTANCE SC (09:15)
--- NOTE | 2024-03-22 09:50 | W.PN.HOSP.TC ---
Addendum entered and electronically signed by John Hernandez MD 03/26/24 08:04:
Altered mental status-Multifactorial due to Toxic Metabolic Encephalopathy/ Symptomatic NPH/Possible Dementia with agitation
Original Note:
Today's Communication/Plan
-
Bicarb IV fluids. Adjust diabetic medications.
Assessment / Plan
Assessment / Plan
Physical exam:
General: Acute on chronically ill
HEENT: Normocephalic, Atraumatic and Moist Mucous Membranes
Respiratory: Clear to Auscultation; Negative Wheezes, Rales or Rhonchi
Cardiac: Regular Rhythm and S1/S2
GI: Soft, Nontender and Nondistended
Musculoskeletal: No Clubbing, No Cyanosis and No Edema
Neuro: Awake, lethargic but responds to verbal stimuli, and Disoriented, memory and cognitive dysfunction
Psych: Calm
A/P:
Cognitive deficit like related to dementia unclear type, but rule out reversible causes such as symptomatic NPH:
Plan for LP as outpatient due to limitations on his cognitive and strength ability in the moment.
Avoid antipsychotic as much as possible
Repeated EKG today and QTc is coming down at a more decent level (today is 478)
Neurology and psychiatry on board
Discussed with neurology today
Discussed with son today over the phone
TIMOTHY /Anion gap metabolic acidosis/ Hyperkalemia:
Start IV fluid with bicarbonate drip
Nephrology consult-discussed with nephrology
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
Holding metformin
B12 deficiency:
Continue B12 supplementation
Cervical spinal stenosis:
Cervical MRI done
Neurosurgery consulted
No need for further intervention at the moment
Diabetes mellitus type 2 with hyperglycemia:
check A1c-->10.7
Cont home Glipizide and Januvia
Hold metformin and Farxiga due to TIMOTHY and metabolic acidosis.
Holding long-acting insulin since not ideal candidate for insulin management outpatient.
Continue insulin sliding scale
Diabetes consult SENIOR HEALTH CONSULTANT appreciated
Primary HTN
cont home metoprolol with holding parameters
Hold losartan due to TIMOTHY
HLD
cont statin
SVT
cont home metoprolol w/ holding parameters
hold Eliquis given frequent falls risk currently outweighs benefit
BPH
cont home Flomax finasteride
Check bladder scans
DVT prophylaxis- Lovenox
CODE STATUS:
DNR/DNI
Total time spent on today's encounter was 52 minutes which included time spent in counseling the patient/family regarding diagnosis and treatment plan as listed above, goals of care, and symptom management. Case was discussed with nursing staff,
specialists, and care coordinators/case management. All labs and imaging personally reviewed by me. Remainder the time spent in detailed review of previous records, lab data, imaging, and other medical provider documentation.
Anticipated Discharge: > 48 hours
Subjective/Interval History
-
Date of Service: March 22, 2024
Patient still lethargic and disoriented. Restless on and off. Afebrile
Objective Data
-
Labs:
Laboratory Results
03/22/24 03/22/24
07:10 09:40
WBC 8.2
Hgb 16.2
Hct 45.7
Plt Count 274
Sodium 143 Pending
Potassium 4.9 D Pending
Chloride 112 H Pending
Carbon Dioxide 12 L* Pending
BUN 32 H Pending
Creatinine 1.3 Pending
Glucose 157 H Pending
Calcium 9.9 Pending
Vital Signs:
Vital Signs
Temp Pulse Resp BP Pulse Ox
98.0 F 80 28 148/77 92
03/22/24 07:25 03/22/24 09:12 03/22/24 07:25 03/22/24 09:12 03/22/24 07:25
I&O
03/21/24 03/22/24 03/23/24
06:59 06:59 06:59
Intake Total 1020 / 1020
Output Total 175 / 175
Balance 845 / 845
[2024-03-22 10:10] LABS: Blood Urea Nitrogen 37 mg/dl (9-20); Calcium 10.1 mg/dl (8.4-10.2); Carbon Dioxide 11 mmol/L (22-30); Chloride 111 mmol/L (98-107); Estimated Creatinine Clearance 41 ml/min; Glucose 234 mg/dl (70-99); Potassium 5.2 mmol/L (3.5-5.1); Sodium 141 mmol/L (135-145); eGFR 49.87
--- NOTE | 2024-03-22 10:30 | W.CON.NEPH ---
Consultation
-
Date/Time Consultation Requested: 03/22/2024 10:15 AM
Date/Time Consultation Performed: 03/22/2024 10:30 AM
Requesting Provider: Dr. Ling
Performing Provider: Dr. Payne
Reason for Consultation: Acute kidney/metabolic acidosis
Medical History
-
Chief Complaint: Acute kidney injury/metabolic acidosis
History of Present Illness:
The patient is an 84-year-old male with a past medical history of diabetes maintained on glipizide metformin, farxiga, Januvia. He has a history of hypertension maintained on losartan. He also has a history of CKD and maintains a baseline
creatinine of around 1.1-1.3. He has had associated progressive decline over the past few months and presented with confusion falls and urinary incontinence on 03/17/2024. We were consulted for acute kidney injury with creatinine of 1.4 and
persistent metabolic acidosis as noted by a carbon dioxide level of 11. (A)
Past Medical History
PAF
HTN
gout
CKD (1.2)
SVT
AVR
DM
Kidney stone
Social History
Ex tobacco and alcohol
Family History
no ckd
Allergies / Home Medications
Allergy/AdvReac Type Severity Reaction Status Date / Time
No Known Allergies Allergy Verified 03/17/24 06:46
�Medication �Instructions �Recorded �Confirmed �Type
allopurinol 100 mg tablet 100 mg PO BID Gout 03/17/24 03/18/24 History
apixaban 5 mg tablet (Eliquis) 5 mg PO BID Blood Clot 03/17/24 03/18/24 History
Prevention/Tx
dapagliflozin propanediol 10 mg 10 mg PO DAILY Diabetes 03/17/24 03/18/24 History
tablet (Farxiga)
finasteride 5 mg tablet 5 mg PO DAILY Urinary Issue 03/17/24 03/18/24 History
furosemide 40 mg tablet 40 mg PO DAILY Fluid 03/17/24 03/18/24 History
Retention/Swelling
glipizide 5 mg tablet, extended 5 mg PO DAILY Diabetes 03/17/24 03/18/24 History
release 24 hr
glipizide 5 mg tablet, extended 10 mg PO QPM Diabetes 03/17/24 03/17/24 History
release 24 hr
losartan 50 mg tablet 50 mg PO DAILY Blood Pressure 03/17/24 03/17/24 History
metformin 500 mg tablet,extended 1,000 mg PO BID Diabetes 03/17/24 03/17/24 History
release 24 hr
metoprolol succinate 100 mg 100 mg PO DAILY Blood Pressure 03/17/24 03/17/24 History
tablet,extended release 24 hr
potassium citrate 10 mEq (1,080 10 meq PO BID Supplement 03/17/24 03/18/24 History
mg) tablet,extended release
rosuvastatin 10 mg tablet 10 mg PO DAILY High Cholesterol 03/17/24 03/17/24 History
sitagliptin phosphate 100 mg 100 mg PO DAILY Diabetes 03/17/24 03/17/24 History
tablet (Januvia)
tamsulosin 0.4 mg capsule 0.4 mg PO DAILY Urinary Issue 03/17/24 03/17/24 History
Review of Systems
-
History Source: Patient
Constitutional: Fatigue
EENT: No Symptoms
Respiratory: No Symptoms
Cardiac: No Symptoms
Abdomen/GI: No Symptoms
: Incontinence
Physical Exam
Vital Signs
Vital Signs
Temp Pulse Resp BP Pulse Ox
98.0 F 80 28 148/77 92
03/22/24 07:25 03/22/24 09:12 03/22/24 07:25 03/22/24 09:12 03/22/24 07:25
Lab Results
03/22/24 07:10
03/22/24 09:40
WBC 8.2 10^3/uL (4.8-10.8) 03/22/24 07:10
RBC 5.34 10^6/uL (4.70-6.10) 03/22/24 07:10
Hgb 16.2 g/dL (13.0-18.0) 03/22/24 07:10
Hct 45.7 % (39.0-52.0) 03/22/24 07:10
Plt Count 274 10^3/uL (130-400) 03/22/24 07:10
Sodium 141 mmol/L (135-145) 03/22/24 09:40
Potassium 5.2 mmol/L (3.5-5.1) H 03/22/24 09:40
Chloride 111 mmol/L (98-107) H 03/22/24 09:40
Carbon Dioxide 11 mmol/L (22-30) L* 03/22/24 09:40
BUN 37 mg/dl (9-20) H 03/22/24 09:40
Creatinine 1.4 mg/dL (0.7-1.3) H 03/22/24 09:40
eGFR 49.87 03/22/24 09:40
Glucose 234 mg/dl (70-99) H 03/22/24 09:40
Calcium 10.1 mg/dl (8.4-10.2) 03/22/24 09:40
Phosphorus 4.3 mg/dl (2.5-4.5) 03/22/24 07:10
Albumin 4.1 g/dl (3.5-5.0) 03/17/24 00:43
Physical Exam
General: AOx1, Nontoxic , lethargic
HEENT: PERRL, EOMI, Anicteric, Conjunctivae Clear, Ear/Nose Intact, Hearing Normal, Oropharynx Clear/dry, Dentition Intact, Facial Symmetry, Neck Supple, Neck: Trachea Midline, No JVD and No Thyromegaly, no Bruits
Respiratory: Clear to auscultation bilaterally with normal lung exersion
Cardiac: S1/S2 and Regular Rate/Rhythm
Breast: Deferred by me
Abdomen: Soft, Nontender, Nondistended, Normal Bowel Sounds and No Hepatosplenomegaly
Rectal: Deferred by Provider
Genito-urinary: No Costovertebral Tenderness
Extremities: No Clubbing, No Cyanosis and No Edema
Skin: No Rash or open lesions
Neuro: Difficult to ascertain but patient does weakly follow commands cranial nerves appear to be intact, can move all 4 extremities
Hematologic/Lymphatic: No Cervical Lymphadenopathy, No Submandibular Lymphadenopathy and No Supraclavicular Lymphadenopathy
Psych: Mood/afflect flat Insight/judgement off, not at baseline
Vascular: plus 1 pedal and radial pulses
Data Reviewed
-
Radiology: Image Personally Visualized and interpreted (Chest x-ray personally reviewed no active infiltrate or pneumonic process)
Medical Tests (Nuc Med, Echo etc): Report Reviewed by me (EKG report reviewed normal sinus rhythm left axis deviation 78 bpm prolonged QT) and Discussed with Nurse
Labs: Labs Reviewed by me ([facility] CBC urinalysis)
Old Records: Reviewed (Reviewed previous creatinine level and carbon dioxide level from date:12/17 1.3)
Assessment/Plan
-
Impression:
Mental status changes failure to thrive
Gap metabolic acidosis
TIMOTHY
CKD (1.2)
Cervical myelopathy with possible spinal cord compression
Possible NPH
Hypertension
Failure to thrive
History of SVT and paroxysmal A-fib
Diabetes
Plan:
TIMOTHY:
Patient is slightly above his baseline
Will follow [facility] for now
We will hold Farxiga at this point
If creatinine worsens will withhold ARB and check bladder scan as patient's has been having ongoing incontinence and urgency with hx of BPH
Gap metabolic acidosis:
-Withhold metformin
-Could be due to underlying type IV RTA in setting of diabetes, noted hyperkalemia
-Will provide alkaline IV fluid
[2024-03-22 11:11] LABS: Glucose - Point of Care 213 mg/dl (70-99)
[2024-03-22] MEDS: NOVOLOG FLEXPEN-MODERATE RESISTANCE 3 UNITS SC (11:22)
[2024-03-22] MEDS: SODIUM BICARBONATE 1150 MEQ IV ×2 (11:35→20:30)
--- NOTE | 2024-03-22 12:24 | W.PN.UPDATE ---
Update Note
Progress Note Update
patient remains much the same. he is very very confused and unable to engage in any conversation. he is however a bit calmer today in terms of demeanor but his body is somewhat restless stil. he has an unoffical one to one which i will make
offical but ordering it so we can dc the med sitter med sitter and one to one is unnecessary. lp still not done. would try to NOT use zyprexa unless absolutely needed as it would contribute to sedation and could conceivably cause restlessness
although less likely than w milol and olgadal.
--- NOTE | 2024-03-22 14:21 | PTCARENOTE ---
Bladder scan = 80ml
[2024-03-22 15:00] VITALS: BP 96/61
[2024-03-22 15:09] VITALS: BP 96/61; PULSE 89; O2SAT 96
--- NOTE | 2024-03-22 15:34 | CM ---
met with patient and spoke with son maryana who states he is overwhelmed with his father's medical situation and dc planning.
patient is still restless and disoriented,now on 1:1,cr now 1.4seen by nephrology,ivf with bicarb dtt.plan is st to lt placement when off 1:1 and/or restraints.
--- NOTE | 2024-03-22 15:39 | CM ---
met with patient and spoke with son maryana who seems overwhelmed with situation renu with dc planning and placement.
patient continues with restlessness and disorientation,he is now on 1:1,cr 1.4-seen bynephroogy,on ivf with bicarb gtt.plan is short term to tank terminal gauger placement once he is off 1:1
[2024-03-22 17:23] LABS: Glucose - Point of Care 178 mg/dl (70-99)
[2024-03-22] MEDS: NOVOLOG FLEXPEN-MODERATE RESISTANCE 1 UNITS SC (17:33)
[2024-03-22] MEDS: LOVENOX SC (17:34)
[2024-03-22 17:42] VITALS: BP 123/65
[2024-03-22] MEDS: FLOMAX PO (21:21)
--- NOTE | 2024-03-22 22:21 | W.PN.DEATH ---
Pronouncement of
-
Called to see patient to pronounce.
No spontaneous heart tones or respirations noted.
Patient not responsive to verbal stimuli.
Patient is pronounced .
Time of : 21:15
Date of : 03/22/24
Family Notified: Yes
--- NOTE | 2024-03-22 23:06 | PTCARENOTE ---
1:1 called staff in to check on patient. Patient unresponsive. ENTERPRISE APPLICATION ADMINISTRATOR Hay Marroquin came to assess and pronounced time of . ENTERPRISE APPLICATION ADMINISTRATOR notified family. [facility] called. Post mortem care performed. Patient transferred to [facility] with all belongings.
[2024-03-23 04:00] LABS: Lyme Disease DNA by PCR Not Detected; Lyme Source Serum
--- NOTE | 2024-03-23 11:09 | W.DCSUMMARY ---
Discharge Summary
Discharge Data
Date of Admission: 03/17/24
Date of Discharge: 03/22/24
-
Pending Results: No
Hospital Course
Patient 84 years old male with history of paroxysmal A-fib, hypertension, hyperlipidemia, SVT, aortic valve regurgitation, diabetes mellitus, BPH, nephrolithiasis, gout, presented to the hospital with altered mental status, ataxia, cognitive
deficits. 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 He also had an MRI of the cervical spine with spinal canal stenosis and neuroforaminal stenosis throughout as well as degenerative disc disease. Neurology and neurosurgery were
consulted. Neurosurgery did not feel the need for any urgent surgical intervention. Neurology was plan to do LP to see if reversible causes such as symptomatic NPH of his underlying cognitive deficits that was not able to be done due to his
mentation being either too agitated or too sedated. The plan was to do LP as outpatient. No evidence of meningismus or DIRECTOR QUALITY SYSTEMS infection. Psychiatry was also on board and managed of the antipsychotics. His anticoagulation was on hold due to risk of
bleeding but he was placed on Lovenox for DVT prophylaxis throughout his hospital stay. Diabetes mellitus E COMMERCE DEVELOPER also monitor the patient and adjusted some of his diabetic medications. Patient course complicated with renal failure hyperkalemia and
metabolic acidosis and nephrology was consulted. Of note, lactic acid was normal a chest x-ray was taken and was normal and his abdominal exam was unremarkable. Nephrology felt that the etiology of his acidosis was related to RTA type IV. His
Farxiga and metformin was placed on hold. He was DNR code status upon admission. Unfortunately, patient became unresponsive overnight and .
Discharge duration: 35 minutes
Discharge Plan
-
Patient Disposition:
Date/Time
Date/Time: 03/22/24 23:10
Discharge Date and Time
Discharge Date/Time: 03/22/24 23:10
Print Language: GUAMANIAN
--- NOTE | 2024-03-25 16:25 | PN.CDI ---
CDI
- -
CDI:
Physician Documentation Request
Admit Date: 03/17/24 14:20
Dear Doctor Mary,
Please review the following and provide your response in the progress notes.
Clinical Indicators:
Pt admitted with Cognitive decline suspect symptomatic NPH/possible Dementia
Documented per ED, ' Patient alert and oriented to person, place and time....acute on chronic encephalopathy, Adult failure to thrive...'
Documented in H&P, ' EDGER RUNNER: AOx2 disoriented to time slow mentation at times exhibiting memory issues..'
Progress note 03/20, ' Neuro: Awake, lethargic but responds to verbal stimuli, and Disoriented, memory and cognitive dysfunction...TIMOTHY...'
Psych consult, ' Pt noted alert on admission, oriented to person and month, disoriented to time and place, poor historian. Initial history obtained from son, Ellis. Since admission, pt noted to be restless, then increasingly agitated and
aggressive. Pt was given Zyprexa 5 mg twice yesterday pm, then 2.5 mg this morning. Pt seen sitting in chair, drowsy with head leaning to the side on pillow. ..'
Psych progress note 03/21, ' patient remains confused and unable to engage in any meaningful discussion. he has not only med sitter but a one to one as well. he was agitated earlier today and received a prn of zyprexa 2.5 mg at noon. he keeps
wanting to get up and walk around according to nsg but is unstable when on his feet. made no changes in his meds. lp has still not been able to be done. i would minimize as much as possible any meds which can cause psychosis.'
Progress note 03/21, ' Neuro: Awake, lethargic but responds to verbal stimuli, and Disoriented, memory and cognitive dysfunction...TIMOTHY /Anion gap metabolic acidosis/ Hyperkalemia..'
Patient care note 03/20 @ 21:22 .' Pt uncooperative with some care, grabs at nurse at times, unable to be redirected, medsitter in place.'
Please provide a diagnosis for the above Altered mental Status/Confusion:
Multifactorial due to Toxic Metabolic Encephalopathy/ Symptomatic NPH/Possible Dementia with agitation
Due to Symptomatic NPH only
Other (please specify)
Use of terms such as suspected, likely, concern for, or probable (associated with a specific diagnosis that is being evaluated, monitored, or treated as if it exists) are acceptable and can be coded in the inpatient setting, when documented at the
time of discharge.
Thank you,
Glenna Mayorga RN
CDI Specialist
[facility]
Please use your independent medical judgment in providing your response.
== END 2024-03-22 23:10 | disposition expired | DRG 56 ==
LOC: 4 EAST ACU 14:20
PROVIDERS: Psychiatry & Neurology Neurology; Radiology Vascular & Interventional Radiology; ADMITTING PHYSICIAN Internal Medicine; ATTENDING PHYSICIAN Hospitalist; CONSULT PHYSICIAN Psychiatry & Neurology Psychiatry; CONSULT PHYSICIAN Specialist; EMERGENCY PHYSICIAN Emergency Medicine; FAMILY PHYSICIAN Internal Medicine; OTHER PHYSICIAN Neurological Surgery; OTHER PHYSICIAN Student in an Organized Health Care Education/Training Program
DX: G91.2 (Idiopathic) normal pressure hydrocephalus (principal); G92.8 Other toxic encephalopathy; E87.20 Acidosis, unspecified; I47.10 Supraventricular tachycardia, unspecified; M50.023 Cervical disc disorder at C6-C7 level with myelopathy; G95.29 Other cord compression; F03.911 Unspecified dementia, unspecified severity, with agitation; N17.9 Acute kidney failure, unspecified; Z66 Do not resuscitate; E78.00 Pure hypercholesterolemia, unspecified; R29.6 Repeated falls; E11.22 Type 2 diabetes mellitus with diabetic chronic kidney disease; E11.65 Type 2 diabetes mellitus with hyperglycemia; E11.42 Type 2 diabetes mellitus with diabetic polyneuropathy; I12.9 Hypertensive chronic kidney disease with stage 1 through stage 4 chronic kidney disease, or unspecified chronic kidney disease; N18.9 Chronic kidney disease, unspecified; E87.5 Hyperkalemia; N25.89 Other disorders resulting from impaired renal tubular function; N40.1 Benign prostatic hyperplasia with lower urinary tract symptoms; N39.41 Urge incontinence; I48.0 Paroxysmal atrial fibrillation; I35.1 Nonrheumatic aortic (valve) insufficiency; E53.8 Deficiency of other specified B group vitamins; M48.02 Spinal stenosis, cervical region; R62.7 Adult failure to thrive; R26.81 Unsteadiness on feet; R26.0 Ataxic gait; M10.9 Gout, unspecified; Z79.01 Long term (current) use of anticoagulants; Z79.84 Long term (current) use of oral hypoglycemic drugs; Z79.899 Other long term (current) drug therapy; Z87.891 Personal history of nicotine dependence
CPT/HCPCS: 70450; 71045; 72141; 80048; 80053; 81003; 81015; 82607; 82962; 83036; 83605; 83735; 84100; 84443; 85025; 85027; 85610; 87086; 87476; 92523; 92610; 93005; 96360; 96361; 96372; 97116; 97167; 97530; 97535; 99285; J2358